=== PATIENT | male | born 1950 | race Caucasian/White ===

== ENCOUNTER 2019-05-23 18:39 | Inpatient (IN) | payer OTHER, MEDICAID ==
[~2019-05-23] VITALS: Ht 188 cm; Wt 59.9 kg
[2019-05-23 18:41] VITALS: BP 134/55
--- NOTE | 2019-05-23 19:04 | NUR ---
PT BIBA BLS FROM [facility] WITH FEVER (99.8F) AND BUMP ON BACK.EMS DOESN OT KNOW HOW DID THE BUMP COME FROM .NO N/V/D NOTED; SKIN IS PINK/WARM/DRY; LUNGS CLEAR BL; HR EVEN AND REGULAR; NO S/S OF CP, SOB, OR COUGH AT THIS TIME;FLACC 0. VSS; PT HAS G-TUBE AND DIAPER IN PLACE . PATIENT POSITIONED FOR COMFORT; HOB ELEVATED; BEDRAILS UP X2; BED DOWN. ER MD MADE AWARE OF PT STATUS.
--- NOTE | 2019-05-23 19:05 | NUR ---
ENDORSED TO PM SHIFT MEGHANN SARAVIA.
--- NOTE | 2019-05-23 20:32 | NUR ---
EKG PERFORMED AT BEDSIDE
[2019-05-23 20:36] LABS: BASOPHILS # (AUTO) 0.1 K/uL (0.00-0.22); BASOPHILS % (AUTO) 0.5 % (0.0-2.0); EOSINOPHILS # (AUTO) 0.2 K/uL (0-0.4); EOSINOPHILS % (AUTO) 1.3 % (0.0-4.0); HEMATOCRIT 36.2 % (36-52); HEMOGLOBIN 11.8 g/dL (12.0-18.0); LYMPHOCYTES # (AUTO) 1.8 K/uL (2.0-11.5); LYMPHOCYTES % (AUTO) 9.9 % (20.5-51.1); MEAN CORPUSCULAR HEMOGLOBIN 32 pg (27-31); MEAN CORPUSCULAR HGB CONC 33 g/dL (33-37); MEAN CORPUSCULAR VOLUME 98.2 fL (80-94); MONOCYTES % (AUTO) 10.9 % (1.7-9.3); NEUTROPHILS # (AUTO) 14.2 K/uL (1.8-7.7); NEUTROPHILS % (AUTO) 77.4 % (42.2-75.2); PLATELET COUNT (AUTO) 174 K/uL (140-450); RED BLOOD CELL COUNT(AUTO) 3.69 MIL/uL (4.20-6.10); RED CELL DISTRIBUTION WIDTH 12.6 % (11.6-13.7); WHITE BLOOD COUNT (AUTO) 18.4 K/uL (4.8-10.8)
[2019-05-23 20:52] LABS: ANION GAP 17.4 (8-16); CARBON DIOXIDE 20.7 mmol/L (21-32); CREATININE 0.7 mg/dL (0.7-1.3); POTASSIUM 4.1 mmol/L (3.5-5.1)
[2019-05-23] MEDS ORDERED: NACL 0.9% 2,000 ML IV ONE (20:55)
[2019-05-23 20:57] LABS: ALBUMIN 2.9 g/dL (3.4-5.0); TOTAL BILIRUBIN 0.2 mg/dL (0.0-1.0)
[2019-05-23] MEDS ORDERED: IBUPROFEN CHILDRENS 100 MG/5 ML UDC GT ONE (21:25)
[2019-05-23] MEDS ORDERED: ACETAMINOPHEN 650 MG SUPP RC ONE (21:25)
[2019-05-23] MEDS ORDERED: LEVOFLOXACIN 500 MG/D5W PREMIX 100 ML IV ONE (22:50)
[2019-05-23 22:53] LABS: APPEARANCE,URINE CLEAR (CLEAR); BILIRUBIN,URINE NEGATIVE (NEGATIVE); BLOOD, URINE NEGATIVE (NEGATIVE); COLOR,URINE YELLOW (YELLOW); LEUKOCYTE ESTERASE ,URINE NEGATIVE (NEGATIVE); NITRITE, URINE NEGATIVE (NEGATIVE); UGLUCOSE NEGATIVE (NEGATIVE)
[2019-05-24] MEDS ORDERED: DEXT 5% /NACL 0.9% 1,000 ML IV SCH (00:16)
[2019-05-24] MEDS ORDERED: HYDROcodone/APAP 7.5/325 MG 1 TAB PO PRN (00:20)
[2019-05-24] MEDS ORDERED: ARIP5TAB61 PO (00:20)
[2019-05-24] MEDS ORDERED: ACETAMINOPHEN 325 MG TAB PO PRN (00:20)
[2019-05-24] MEDS ORDERED: ONDANSETRON 4 MG/2 ML VIAL IVP PRN ×2 (00:20→09:30)
[2019-05-24] MEDS ORDERED: ESOM40EC PO (00:21)
[2019-05-24] MEDS ORDERED: FLUO10CA21 PO (00:22)
[2019-05-24] MEDS ORDERED: SYN.1 PO (00:23)
[2019-05-24] MEDS ORDERED: ATI.5 PO (00:25)
[2019-05-24] MEDS ORDERED: MULT-153 PO (00:26)
[2019-05-24] MEDS ORDERED: TOP100 PO (00:29)
[2019-05-24] MEDS ORDERED: BISA5ECT45 PO (00:30)
--- NOTE | 2019-05-24 00:30 | NUR ---
PT IN BED ALL FALLS PRECAUTIONS IN PLACE. PT WAS TURNED AND REPOSITIONED IN BED. V/S FOLLOWS: T 99.2 P 67 R 18 B/P 118/53 02 97% ON ROOM AIR. ALL FALLS PRECAUTIONS IN P[LACE AND IV SITE RUNNING FLUIDS ORDERED.
[2019-05-24] MEDS ORDERED: MAGN400S60 PO (00:32)
[2019-05-24 01:08] LABS: PROTHROMBIN TIME 9.6 secs (10.8-13.4)
[2019-05-24 01:22] LABS: PHOSPHORUS 2.3 mg/dL (2.5-4.9); THYROID STIMULATING HORMONE 0.53 uIU/mL (0.34-3.74)
[2019-05-24 01:40] VITALS: BP 111/46
--- NOTE | 2019-05-24 01:40 | NUR ---
PT ADMITTED TO [facility] RM 122B. TRANSFERRED VIA GURNEY, STABLE CONDITION. REPORT GIVEN TO LINDA ZAVALETA. TRANSFER OF CARE AT THIS TIME.
--- NOTE | 2019-05-24 01:40 | NUR ---
ADMITTED A 68M FROM ER. CAME BY BIRD DUE TO LOW GRADE FEVER, BACK ABSCESS. AWAKE, NO DISTRESS NOTED. MUMBLES. ON TELE MONITOR-SR. CONTRACTED ON UPPER AND LOWER EXTREMITIES. IV ACCESS ON THE RT FOOT G#22. WITH WOUND ABSCESS ON LOWER BACK. DRAINING LIGHT SEROSANGUINEOUS FLUIDS. CLEANSED WITH NS AND COVER WITH COMPOSITE DRESSING. REPOSITIONED PT FOR COMFORT. BED ON LOW POSITION,SIDE RAILS UP X2 AND PADDED FOR SEIZURE PRECAUTION. BED ALARM ON FOR SAFETY.CALL LIGHT PLACED WITHIN REACH AND FREQ ROUNDS NEEDED. WILL CALL MD FOR FURTHER ORDERS.
--- NOTE | 2019-05-24 02:40 | NUR ---
PAGED Mary NUÑEZ FOR FURTHER ORDERS. CALL BACK WITH ORDERS MADE AND CARRIED OUT.
--- NOTE | 2019-05-24 03:15 | NUR ---
ISOSOURCE 1.5 FOR GT FEEDING NOT AVAILABLE PER MEGHANN YOUNG GUARD LIEUTENANT. PAGED AGAIN DR. WONG AND MADE AWARE. OK TO CHANGE FEEDING TO JEVITY 1.2 SAME RATE.
[2019-05-24] MEDS: DEXT 5% / NACL 0.45% 1,000 ML IV SCH ×2 (04:12→15:00)
--- NOTE | 2019-05-24 04:28 | NUR ---
[facility] FEEDING UNABLE TO START DUE TO DIFFERENT CONNECTOR . CALLED [facility] IN [place], ABLE TO TALKED TO MEGHANN DOMINGO SHE SAID SHE THEY WILL BRING THE CONNCETOR THIS AM. ALSO SHE SAID PT ALREADY AHD PNA VACCINE AND FLU VACCINE.
[2019-05-24 04:50] VITALS: BP 127/66
--- NOTE | 2019-05-24 05:00 | NUR ---
SPECIMEN COLLECTED ON THE LOWER BACK ABSCESS FOR WOUND CULTURE. SEND TO LAB.
[2019-05-24 05:31] LABS: BASOPHILS % (AUTO) 0.2 % (0.0-2.0); EOSINOPHILS # (AUTO) 0.2 K/uL (0-0.4); EOSINOPHILS % (AUTO) 1.3 % (0.0-4.0); HEMATOCRIT 32.6 % (36-52); HEMOGLOBIN 10.9 g/dL (12.0-18.0); LYMPHOCYTES # (AUTO) 1.1 K/uL (2.0-11.5); LYMPHOCYTES % (AUTO) 6.5 % (20.5-51.1); MEAN CORPUSCULAR HEMOGLOBIN 33 pg (27-31); MEAN CORPUSCULAR HGB CONC 33 g/dL (33-37); MEAN CORPUSCULAR VOLUME 97.8 fL (80-94); MONOCYTES # (AUTO) 1.7 K/uL (0.8-1.0); MONOCYTES % (AUTO) 10.3 % (1.7-9.3); NEUTROPHILS # (AUTO) 13.8 K/uL (1.8-7.7); NEUTROPHILS % (AUTO) 81.7 % (42.2-75.2); PLATELET COUNT (AUTO) 147 K/uL (140-450); RED BLOOD CELL COUNT(AUTO) 3.33 MIL/uL (4.20-6.10); WHITE BLOOD COUNT (AUTO) 16.8 K/uL (4.8-10.8)
[2019-05-24 06:18] LABS: ALBUMIN 2.7 g/dL (3.4-5.0); ANION GAP 14.4 (8-16); CARBON DIOXIDE 22.9 mmol/L (21-32); CREATININE 0.6 mg/dL (0.7-1.3); POTASSIUM 4.3 mmol/L (3.5-5.1); TOTAL BILIRUBIN 0.3 mg/dL (0.0-1.0)
--- NOTE | 2019-05-24 07:30 | NUR ---
ENDORSED PT IN STABLE CONDITION TO AM NURSE.
--- NOTE | 2019-05-24 07:58 | NUR ---
SHIFT REPORT RECEIVED FROM MANAGER OF MAINTENANCE NURSE. PT IS IN BED IN STABLE CONDITION. G TUBE FEEDING NOT STARTED. WAITING FOR ADAPTER FROM [facility]. MANAGER OF MAINTENANCE NURSE CALLED [facility] TO BRING ADAPTER. CALL LIGHT IN REACH.
[2019-05-24 08:00] VITALS: BP 110/56
--- NOTE | 2019-05-24 08:40 | NUR ---
PATIENT HAS BEEN SCREENED AND CATEGORIZED HIGH NUTRITION RISK. PATIENT WILL BE SEEN WITHIN 1-2 DAYS OF ADMISSION. 05/24/19-05/25/[address]
[2019-05-24] MEDS ORDERED: DOCUSATE SODIUM 100 MG GELCAP PO SCH (09:00)
[2019-05-24] MEDS ORDERED: FAMOTIDINE 20 MG TAB PO SCH (09:00)
[2019-05-24] MEDS ORDERED: BISACODYL 10 MG SUPP RC PRN (09:20)
[2019-05-24] MEDS ORDERED: MAGNESIUM HYDROXIDE 2400 MG/30 ML UDC GT PRN (09:25)
[2019-05-24] MEDS ORDERED: LEVOFLOXACIN 500 MG/D5W PREMIX 100 ML IV SCH (09:30)
[2019-05-24] MEDS ORDERED: HYDROcodone/APAP 5/325 MG 1 TAB TAB GT PRN ×2 (09:30)
--- NOTE | 2019-05-24 09:30 | NUR ---
PT IS IN BED. NO SIGNS OF DISTRESS NOTED VITAL SIGNS WITHIN NORMAL LEVELS. CALL LIGHT IN REACH.
[2019-05-24] MEDS: ACETAMINOPHEN 650 MG/20.3 ML UDC GT PRN (10:37)
[2019-05-24 12:00] VITALS: BP 119/47
--- NOTE | 2019-05-24 13:00 | NUR ---
PER WOUND CARE NURSE. REPORTED TO CHARGE NURSE THAT DR WONG SHOULD BE CALLED FOR WOUND CONSULT. PER CHARGE NURSE DR HUERTA IS AWARE OF THE PATIENTS WOUND CONDITION.
[2019-05-24] MEDS ORDERED: CRUSHER, PILL MC ONE (13:11)
[2019-05-24] MEDS: LORazepam 0.5 MG TAB GT SCH ×2 (13:14→16:16)
--- NOTE | 2019-05-24 13:33 | NUR ---
WOUND CARE CONSULT NOTE: CLARIFICATION: PT ADMITTED WITH NO WOUND TO SACRAL COCCYX AREA.PT. ADMITTED WITH AN ABSCESS TO LOWER LUMBAR AREA, 2.5X4CM, CLOSE WOUND SEEPING OUT PURULENT DRAINAGE, MILD ODOR, PALLAVI-WOUND SKIN ERYTHEMA, WARM AND SWELLING, RECOMMEND FOR SURGEON CONSULT AND CHANGE DRESSING QD AND PRN IF SOILING. PRIMARY RN NOTIFIED. PT IS ON LOW MIHAELA SCALE AT RISK, CONTINUE TO FOLLOW PRESSURE ULCER PREVENTION INTERVENTIONS. -TURN AND REPOSITION PATIENT Q 2H -ASSESS AND MONITOR SKIN CONDITION DURING POSITION CHANGE -OFFLOAD BILATERAL HEELS BY PLACING PILLOWS UNDER CALVES AT ALL TIMES, UNLESS OTHERWISE CONTRAINDICATED -PRESSURE REDISTRIBUTION BY PLACING PILLOWS AND OFFLOADING SACRALCOCCYX -KEEP SKIN CLEAN AND DRY AT ALL TIMES. -CLEANSE LOWER BACK ABSCESS WITH NS, PAT DRY AND COVER WITH DRY DRESSING QD AND PRN IF SOILING
[2019-05-24] MEDS ORDERED: NON ADHERENT DRESSING TP PRN (13:45)
--- NOTE | 2019-05-24 15:00 | NUR ---
DC PLANNIN YRS OLD MALE PATIENT WAS ADMITTED FROM A [facility] WITH A DX OF PNEUMONIA. 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 ADMINISTERED IV ABX LEVAQUIN , CONTINUE HOME MEDS. ORDERED WOUND CONSULT AND ID CONSULT WITH DR CHARLES. DC PLAN TO GO BACK TO [facility] . CM TO FOLLOW Addendum: 05/25/19 at 0968 by Alicia Petersen CM DC PLANNING: CONTINUED WITH IV ABX LEVAQUIN AND VANCO. SEEN BY DR HUERTA RECOMMENDED I&D AND DEBRIDEMENT OF BACK ABSCESS , DISCUSSED WITH [address] WONG AND [address] CHARLES THEY ARE IN AGREEMENT TO PERFORM THE I&D. DC PLAN TO GO TO [facility] WHEN STABLE. IF MD RECOMMENDS HOME HEALTH FOR WOUND CARE WILL ARRANGE. CM TO FOLLOW Addendum: 05/27/19 at 1623 by Alicia Petersen CM DC PLANNING [facility] PT UNDER THE CARE OF DR JUDITH Pittman. CAN GO TO ROOM #15B TO GIVE REPORT [phone] AND ARRANGE TRANSPORT FOR WILL CALL WITH [facility] [phone] AFTER PICC PLACEMENT .
--- NOTE | 2019-05-24 15:00 | NUR ---
PT IS RESTING IN BED. INDUCE SPUTUM COLLECTION DONE. PT TOLERATED WELL. NO AGITATION NOTED. CALL LIGHT IN REACH.
[2019-05-24 16:00] VITALS: BP 117/58
--- NOTE | 2019-05-24 16:03 | NUR ---
05/24/19 INITIAL ASSESSMENT COMPLETED PLEASE REFER TO NUTRITION ASSESSMENT UNDER CARE ACTIVITY FOR ESTIMATED NUTRITIONAL NEEDS. 1. CONTINUE JEVITY 1.2 @ 75 ML/HR -THIS WILL PROVIDE 1800 ML OF VOLUME, 2160 KCAL AND 100 GM OF PROTEIN, WHICH MEETS 100% OF ESTIMATED NEEDS 2. RECOMMEND INCREASING FREE WATER FLUSH TO [address] TO FOLLOW-UP 2-3 DAYS, HIGH RISK ANGELINA GARZA RD
[2019-05-24] MEDS ORDERED: VANCOMYCIN PER PHARMACY MC PRN (17:20)
--- NOTE | 2019-05-24 18:00 | NUR ---
PT IS RESTING IN BED. NO AGITATION NOTED. CALL LIGHT IN REACH.
[2019-05-24] MEDS: VANCOMYCIN 1,000 MG in DEXTROSE 5% 250 ML IV SCH (18:16)
--- NOTE | 2019-05-24 19:41 | NUR ---
SHIFT REPORT ENDORSED TO OIL INSPECTOR NURSE. PT IS IN BED IN STABLE CONDITION. CALL LIGHT IN REACH.
--- NOTE | 2019-05-24 19:41 | NUR ---
REPORT RECEIVED FROM RN DAYSHIFT NURSE AT BEDSIDE FOR CONTINUITY OF CARE, PT IN STABLE CONDITION.
[2019-05-24 20:00] VITALS: BP 129/51
--- NOTE | 2019-05-24 20:00 | NUR ---
PT IN BED AOX1 SKIN INTACT EXCEPT FOR THE ACCES ON BACK. DRESSING INTACT WITH DRAINAGE NOTED. ALL FALLS PRECAUTIONS IN PLACE, HE WAS TURNED AND REPOSITIONED IN BED. V/S FOLLOWS; T 98.1 P 72 R 18 B/P 129/51 02 99% ON ROOM AIR. PT LUNG SOUNDS DIMINISHED, PT HAS GT INTACT AND FLUSHED PATENT WITH NO RESIDUAL. IV FLUIDS HUNG AND RUNNING ORDERED. VANCOMYCIN IV ABT COMPLETED NO ADVERSE EFFECTS NOTED, PT HAS IV SITE ON LEFT FOOT INTACT AND ASYMPTOMATIC.
--- NOTE | 2019-05-24 22:30 | NUR ---
IV ABT LEVAQUIN HUNG AND RUNNING AT 100MLS/HR. PT ALSO RECEIVED ORDERED TOPAMAX VIA GT SITE.
[2019-05-24] MEDS: TOPIRAMATE 100 MG TAB GT SCH (23:21)
[2019-05-24] MEDS: LEVOFLOXACIN 500 MG/D5W PREMIX 100 ML IV SCH (23:27)
[2019-05-25] VITALS: BP 103/68
[2019-05-25] MEDS: ACETAMINOPHEN 650 MG/20.3 ML UDC GT PRN (00:10)
--- NOTE | 2019-05-25 00:10 | NUR ---
PT TEMP WAS 101.2 AUXILIARY, HE WAS GIVEN TYLENOL VIA GT AND COOLING MEASURES, OTHER V/S FOLLOWS; P 81 R 18 B/P 103/68 02 97% ON ROOM AIR.
--- NOTE | 2019-05-25 01:30 | NUR ---
PT WAS TURNED AND REPOSITIONED , WOUND CARE PROVIDED.
[2019-05-25 04:00] VITALS: BP 118/53
--- NOTE | 2019-05-25 04:30 | NUR ---
PT TURNED CHANGED AND REPOSITIONED IN BED NO S/S OF PAIN OR DISTRESS NOTED RE TAKE OF V/S FOLLOWS; T 99. 2 P 67 R 18 B/P 118/53. ALL FALLS PRECAUTIONS IN PLACE.
[2019-05-25 05:38] LABS: BASOPHILS # (AUTO) 0.1 K/uL (0.00-0.22); BASOPHILS % (AUTO) 0.4 % (0.0-2.0); EOSINOPHILS # (AUTO) 0.6 K/uL (0-0.4); EOSINOPHILS % (AUTO) 2.9 % (0.0-4.0); LYMPHOCYTES % (AUTO) 9.1 % (20.5-51.1); MEAN CORPUSCULAR HEMOGLOBIN 33 pg (27-31); MEAN CORPUSCULAR HGB CONC 33 g/dL (33-37); MEAN CORPUSCULAR VOLUME 98.8 fL (80-94); MONOCYTES # (AUTO) 1.9 K/uL (0.8-1.0); MONOCYTES % (AUTO) 8.8 % (1.7-9.3); NEUTROPHILS # (AUTO) 17.4 K/uL (1.8-7.7); NEUTROPHILS % (AUTO) 78.8 % (42.2-75.2); PLATELET COUNT (AUTO) 167 K/uL (140-450); RED BLOOD CELL COUNT(AUTO) 3.34 MIL/uL (4.20-6.10); WHITE BLOOD COUNT (AUTO) 22.1 K/uL (4.8-10.8)
[2019-05-25 05:55] LABS: ANION GAP 12.9 (8-16); CARBON DIOXIDE 21.9 mmol/L (21-32); CREATININE 0.6 mg/dL (0.7-1.3); POTASSIUM 3.8 mmol/L (3.5-5.1)
[2019-05-25] MEDS: DEXT 5% / NACL 0.45% 1,000 ML IV SCH ×2 (06:00→18:40)
--- NOTE | 2019-05-25 06:00 | NUR ---
JOHNNY CARPENTER ORDERED IV SITE INTACT AND ASYMPTOMATIC. PT IN BED NO S/S OF PAIN OR DISTRESS NOTED.
[2019-05-25] MEDS: VANCOMYCIN 1,000 MG in DEXTROSE 5% 250 ML IV SCH ×2 (06:02→17:38)
--- NOTE | 2019-05-25 07:25 | NUR ---
PATIENT IS RESTING IN BED, DEVELOPMENTALLY DELAYED, AAOX1. SCHEDULED FOR I&D WITH DR. HUERTA TODAY AROUND 1130. BED IN LOW POSITION, CALL LIGHT ON AND WITHIN REACH. WILL CONTINUE TO MONITOR.
[2019-05-25 08:00] VITALS: BP 127/69
[2019-05-25] MEDS: DOCUSATE 100 MG/10 ML UDC GT SCH (09:10)
[2019-05-25] MEDS: LORazepam 0.5 MG TAB GT SCH ×3 (09:11→17:38)
[2019-05-25] MEDS: VITAMIN D 400 IU TAB GT SCH (09:11)
[2019-05-25] MEDS: LEVOTHYROXINE 0.1 MG TAB GT SCH (09:11)
[2019-05-25] MEDS: TOPIRAMATE 100 MG TAB GT SCH ×2 (09:11→21:36)
[2019-05-25] MEDS: FOLIC ACID 1 MG TAB GT SCH (09:12)
[2019-05-25] MEDS: ARIPiprazole 10 MG TAB GT SCH (09:12)
[2019-05-25] MEDS: FLUoxetine 10 MG CAP GT SCH (09:12)
[2019-05-25] MEDS: PANTOPRAZOLE 40 MG INJ VIAL IVP SCH (09:14)
--- NOTE | 2019-05-25 10:30 | NUR ---
PATIENT IS RESTING IN BED, MEDICATIONS TOLERATED WELL THROUGH GTUBE. PATIENT IS RESTING IN BED, WILL CONTINUE TO MONITOR.
[2019-05-25] MEDS ORDERED: BUPIVACAINE-MPF/EPI 0.25% 30 ML VIAL INJ ONE (11:08)
[2019-05-25] MEDS ORDERED: LIDOCAINE 1% 500 MG/50 ML VIAL ONE (11:08)
--- NOTE | 2019-05-25 11:30 | NUR ---
PATIENT WAS TAKEN TO OR FOR I&D. VITAL SIGNS STABLE. REPORT GIVEN TO OR NURSES.
[2019-05-25 12:00] VITALS: BP 103/64
[2019-05-25] MEDS ORDERED: PROPOFOL 200 MG/20 ML VIAL IV ONE (12:35)
--- NOTE | 2019-05-25 12:49 | NUR ---
PATIENT REMAINS IN OR.
[2019-05-25] MEDS: NON ADHERENT DRESSING TP SCH (14:16)
--- NOTE | 2019-05-25 15:00 | NUR ---
PATIENT IS RESTING IN BED, GTUBE FEEDING CONTINUED AT 75 ML/HR. MEDICATIONS TOLERATED WELL. WILL CONTINUE TO MONITOR.
[2019-05-25 16:00] VITALS: BP 108/64
--- NOTE | 2019-05-25 17:30 | NUR ---
PATIENT IS RESTING IN BED, TOLERATING FEEDING MEDICATION WELL. WILL CONTINUE TO MONITOR.
--- NOTE | 2019-05-25 19:10 | NUR ---
REPORT GIVEN TO SHOE TREER NURSE FOR CONTINUATION OF CARE.
--- NOTE | 2019-05-25 19:30 | NUR ---
RECEIVED REPORT FORM CAMRON RN DAYSHIFT NURSE AT BEDSIDE FOR CONTINUITY OF CARE, PT IN STABLE CONDITION, IN BED NO S/S OF PAIN OR DISTRESS NOTED. IV SITE ON LEFT FOOT 22G INTACT AND ASYMPTOMATIC AND RUNNING NORMAL SALINE AT 75MLS/HR. PT IN BED AOX1 GT SITE INTACT WITH NO RESIDUAL, PT RUNNING JEVITY 1.2 ORDERED, ALL FALLS PRECAUTIONS IN PLACE PT FLACC-O.
[2019-05-25 20:00] VITALS: BP 144/74
--- NOTE | 2019-05-25 21:30 | NUR ---
PT IN BED GIVEN SCHEDULED MEDS VIA GT , NO RESIDUAL NOTED LEVAQUIN HUNG AND RUNNING AT 100MLS/HR ORDERED. ALL FALL PRECAUTIONS IN PLACE.
[2019-05-25] MEDS: LEVOFLOXACIN 500 MG/D5W PREMIX 100 ML IV SCH (21:42)
--- NOTE | 2019-05-25 22:00 | NUR ---
PT WAS TURNED, CLEAN AND REPOSITIONED. DRESSING ON SACRAL AREA INTACT BUT WITH MODERATE DRAINAGE OF SEROSANGUINEOUS DRAINAGE. DRESSING REINFORCED. ALL FALLS PRECAUTIONS IN PLACE , GT FEEDING RUINING ORDERED AND IV SITE INTACT AND ASYMPTOMATIC AND RUNNING ORDERED. ALL FALLS PRECAUTIONS IN PLACE.
[2019-05-26] VITALS: BP 108/52
[2019-05-26] MEDS: DEXT 5% / NACL 0.45% 1,000 ML IV SCH ×2 (00:20→05:36)
--- NOTE | 2019-05-26 00:45 | NUR ---
PT IN BED, HE WAS REPOSITIONED IN BED, NO S/S OF PAIN OR DISTRESS NOTED. V/S FOLLOWS: T 98.7 P 62 R 18 B/P 108/52 02 97% ON ROOM AIR JEVITY 1.2 RUNNING AT 75MLS/HR WITH H2O FLUSH AT 100 Q 4 HRS. V/S FOLLOWS: T 98.7 P 62 R 18 B/P 108/52 02 97% ON ROOM AIR. ALL FALLS PRECAUTIONS IN PLACE.
[2019-05-26 04:00] VITALS: BP 112/80
[2019-05-26] MEDS: VANCOMYCIN 1,000 MG in DEXTROSE 5% 250 ML IV SCH ×2 (05:27→18:07)
--- NOTE | 2019-05-26 07:19 | NUR ---
RECEIVED PATIENT FROM SLIP COVER ESTIMATOR NURSE. PATIENT IS AWAKE, LAYING IN BED. RESPIRATIONS EVEN AND UNLABORED, ROOM AIR. VISIBLE CHEST RISE NOTED. S/P I&D RIGHT LOWER BACK. DRESSING IN PLACE. G-TUBE IN PLACE, JEVITY 1.2 RUNNING 75 ML/HR, H2O FLUSH AT 100 Q4H. GASTRIC RESIDUAL 3ML. IV ON THE LEFT FOOT 22G RUNNING D51/2NS AT 75 ML/HR. PATIENT IS BEDBOUND. SEIZURE PRECAUTION IN PLACE. SIDE RAILS PADDING IN PLACE. BED IN LOW POSITION. CALL LIGHT IS WITHIN REACH. WILL CONTINUE TO MONITOR
[2019-05-26 08:00] VITALS: BP 104/54
--- NOTE | 2019-05-26 08:00 | NUR ---
CHANGE IV SITE TO LEFT MCNAIR 20G. IV PATENT AND INTACT.
[2019-05-26] MEDS: VITAMIN D 400 IU TAB GT SCH (09:02)
[2019-05-26] MEDS: FOLIC ACID 1 MG TAB GT SCH (09:03)
[2019-05-26] MEDS: FLUoxetine 10 MG CAP GT SCH (09:03)
[2019-05-26] MEDS: TOPIRAMATE 100 MG TAB GT SCH ×2 (09:03→20:22)
[2019-05-26] MEDS: LORazepam 0.5 MG TAB GT SCH ×3 (09:03→17:11)
[2019-05-26] MEDS: LEVOTHYROXINE 0.1 MG TAB GT SCH (09:03)
--- NOTE | 2019-05-26 09:03 | NUR ---
GIVEN MORNING MEDICATIONS VIA G-TUBE. 3ML GASTRIC RESIDUAL. PATIENT TOLERATING FEEDING WELL. EXPLAINED TO PATIENT MEDICATIONS. PATIENT TOLERATED MEDICATION WELL. WILL CONTINUE TO MONITOR
[2019-05-26] MEDS: PANTOPRAZOLE 40 MG INJ VIAL IVP SCH (09:04)
[2019-05-26] MEDS: DOCUSATE 100 MG/10 ML UDC GT SCH (09:04)
[2019-05-26] MEDS: ARIPiprazole 10 MG TAB GT SCH (09:04)
--- NOTE | 2019-05-26 09:17 | NUR ---
MADE ROUNDS. PATIENT IS SLEEPING AT THIS TIME. NO SIGNS OF DISTRESS NOTED. CALL LIGHT IS WITHIN REACH. BED IN LOW POSITION. WILL CONTINUE TO MONITOR. SEIZURE AND FALL PRECAUTION IN PLACE
[2019-05-26 10:29] LABS: HEMATOCRIT 31.8 % (36-52); HEMOGLOBIN 10.6 g/dL (12.0-18.0); MEAN CORPUSCULAR HEMOGLOBIN 32 pg (27-31); MEAN CORPUSCULAR HGB CONC 34 g/dL (33-37); MEAN CORPUSCULAR VOLUME 96.6 fL (80-94); PLATELET COUNT (AUTO) 160 K/uL (140-450); RED BLOOD CELL COUNT(AUTO) 3.29 MIL/uL (4.20-6.10); RED CELL DISTRIBUTION WIDTH 12.6 % (11.6-13.7)
[2019-05-26 10:47] LABS: ANION GAP 15.3 (8-16); CARBON DIOXIDE 21.4 mmol/L (21-32); CREATININE 0.6 mg/dL (0.7-1.3); POTASSIUM 3.7 mmol/L (3.5-5.1)
[2019-05-26 11:22] LABS: BASOPHILS % (MANUAL) 0 % (0-2); EOSINOPHILS % (MANUAL) 5 % (0-4); LYMPHOCYTES % (MANUAL) 12 % (20-46); MONOCYTES % (MANUAL) 8 % (5-12)
--- NOTE | 2019-05-26 11:39 | NUR ---
PATIENT IS RESTING AT THIS TIME. NO SIGNS OF DISTRESS NOTED. BED IN LOW POSITION. CALL LIGHT IS WITHIN REACH.
[2019-05-26] MEDS: NON ADHERENT DRESSING TP SCH (13:10)
--- NOTE | 2019-05-26 13:18 | NUR ---
GIVEN ATIVAN VIA G-TUBE. GASTRIC RESIDUAL 0. PATIENT TOLERATED WELL. WILL CONTINUE TO MONITOR. BED IN LOW POSITION. CALL LIGHT IS WITHIN REACH
[2019-05-26] MEDS ORDERED: MORPHINE SULFATE 4 MG/ML SYR IVP SCH (13:30)
--- NOTE | 2019-05-26 17:20 | NUR ---
RECEIVED REPORT FROM MEGHANN FIELDS FOR CONTINUITY OF CARE FOR THIS SHIFT. PATIENT IS STABLE. WILL CONTINUE TO MONITOR.
--- NOTE | 2019-05-26 19:00 | NUR ---
PATIENT IN STABLE CONDITION. WILL ENDORSE TO NIGHT NURSE FOR CONTINUITY OF CARE.
--- NOTE | 2019-05-26 19:10 | NUR ---
RECEIVED PATIENT FROM DAY SHIFT NURSE. PT LAYING IN BED. RESPIRATIONS EVEN AND UNLABORED, ROOM AIR. VISIBLE CHEST RISE NOTED. S/P I&D RIGHT LOWER BACK. DRESSING IN PLACE. G-TUBE IN PLACE, JEVITY 1.2 RUNNING 75 ML/HR, H2O FLUSH AT 100 Q4H. GASTRIC RESIDUAL 5ML. IV ON THE LEFT FOOT 22G RUNNING D51/2NS AT 75 ML/HR. PATIENT IS BEDBOUND. BED IN LOW POSITION. CALL LIGHT IS WITHIN REACH. WILL CONTINUE TO MONITOR
[2019-05-26] MEDS: LEVOFLOXACIN 500 MG/D5W PREMIX 100 ML IV SCH (20:22)
--- NOTE | 2019-05-26 20:22 | NUR ---
GIVEN TOPAMAX AND LEVOFLOXACIN MD ORDERED, PT TOLERATED WELL.
[2019-05-27] VITALS: BP 98/44
--- NOTE | 2019-05-27 | NUR ---
VS CHECKED, WITHIN PT'S BASELINE, WILL CONTINUE TO MONITOR.
--- NOTE | 2019-05-27 02:22 | NUR ---
PT LYING ON BED. NO ACUTE DISTRESS NOTED.
[2019-05-27] MEDS: VANCOMYCIN 1,000 MG in DEXTROSE 5% 250 ML IV SCH ×2 (05:11→17:51)
--- NOTE | 2019-05-27 05:11 | NUR ---
GIVEN VANCOMYCIN MD ORDERED. PT TOLERATED WELL.
--- NOTE | 2019-05-27 06:37 | NUR ---
PT IN STABLE CONDITION. WILL ENDORSE PT TO DAY SHIFT NURSE FOR CONTINUOUS CARE.
--- NOTE | 2019-05-27 07:05 | NUR ---
RECEIVED REPORT FROM NIGHT NURSE, PT IS STABLE, SAFETY MEASURES IN PLACE,
[2019-05-27 07:36] LABS: BASOPHILS % (AUTO) 0.5 % (0.0-2.0); EOSINOPHILS # (AUTO) 0.8 K/uL (0-0.4); EOSINOPHILS % (AUTO) 9.3 % (0.0-4.0); HEMATOCRIT 31.9 % (36-52); HEMOGLOBIN 10.7 g/dL (12.0-18.0); LYMPHOCYTES % (AUTO) 10.8 % (20.5-51.1); MEAN CORPUSCULAR HEMOGLOBIN 33 pg (27-31); MEAN CORPUSCULAR HGB CONC 33 g/dL (33-37); MEAN CORPUSCULAR VOLUME 97.5 fL (80-94); MONOCYTES # (AUTO) 0.9 K/uL (0.8-1.0); MONOCYTES % (AUTO) 10.2 % (1.7-9.3); NEUTROPHILS # (AUTO) 6.1 K/uL (1.8-7.7); NEUTROPHILS % (AUTO) 69.2 % (42.2-75.2); PLATELET COUNT (AUTO) 181 K/uL (140-450); RED BLOOD CELL COUNT(AUTO) 3.27 MIL/uL (4.20-6.10); WHITE BLOOD COUNT (AUTO) 8.9 K/uL (4.8-10.8)
[2019-05-27 07:53] LABS: ALBUMIN 2.5 g/dL (3.4-5.0); ANION GAP 14.3 (8-16); CREATININE 0.6 mg/dL (0.7-1.3); POTASSIUM 4.3 mmol/L (3.5-5.1); TOTAL BILIRUBIN 0.3 mg/dL (0.0-1.0)
[2019-05-27 07:56] LABS: ANION GAP 11.5 (8-16); CARBON DIOXIDE 25.5 mmol/L (21-32); CREATININE 0.6 mg/dL (0.7-1.3)
[2019-05-27 08:00] VITALS: BP 94/47
[2019-05-27] MEDS: DOCUSATE 100 MG/10 ML UDC GT SCH (10:11)
[2019-05-27] MEDS: FLUoxetine 10 MG CAP GT SCH (10:11)
[2019-05-27] MEDS: ARIPiprazole 10 MG TAB GT SCH (10:12)
[2019-05-27] MEDS: LEVOTHYROXINE 0.1 MG TAB GT SCH (10:12)
[2019-05-27] MEDS: FOLIC ACID 1 MG TAB GT SCH (10:13)
[2019-05-27] MEDS: VITAMIN D 400 IU TAB GT SCH (10:13)
[2019-05-27] MEDS: LORazepam 0.5 MG TAB GT SCH ×3 (10:14→17:51)
[2019-05-27] MEDS: PANTOPRAZOLE 40 MG INJ VIAL IVP SCH (10:15)
--- NOTE | 2019-05-27 10:30 | NUR ---
GAVE ORDERED MEDICATION, PT TOLERATED WELL, PT IS STABLE IN BED
[2019-05-27] MEDS: TOPIRAMATE 100 MG TAB GT SCH ×2 (10:31→20:55)
[2019-05-27] MEDS: DEXT 5% / NACL 0.45% 1,000 ML IV SCH (10:40)
--- NOTE | 2019-05-27 11:00 | NUR ---
WOUND CARE RE-EVALUATION NOTES: REASON FOR EVALUATION: LOWER LUMBAR AREA ABSCESS COMPLETE SKIN ASSESSMENT DONE ON THIS 62 YEAR OLD MALE WITH S/P I&D ON LOWER BACK ABSCESS ON 05/25/19. 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 ALL ABOVE INFORMATION WAS OBTAINED FROM THE ADMISSION H&P. PATIENT IS AWAKE, VERBAL WITH INCOMPREHENSIBLE SPEECH, EYES OPEN AND ABLE TO TRACK MOVEMENT. SKIN COLOR APPROPRIATE TO ETHNICITY, WARM TO TOUCH. PEDAL PULSES PRESENT. G-TUBE IN PLACE. REQUIRES ASSISTANCE IN TURNING, BILATERAL UPPER AND LOWER EXTREMITY CONTRACTURES NOTED. PLAN OF CARE AND PRESSURE PREVENTATIVE MEASURES DISCUSSED WITH PRIMARY NURSE. PT IS ON LOW MIHAELA SCALE AT RISK, CONTINUE TO FOLLOW PRESSURE ULCER PREVENTION INTERVENTIONS. INTEGUMENTARY: - LOWER LUMBAR ABSCESS SURGICAL WOUND MEASUREMENTS IS 4.5 X 3 X 3 CM WITH UNDERMINING 2 CM FROM 1 TO 5 O'CLOCK AND 2 CM UNDERMINING FROM 7 TO 11 O'CLOCK. WOUND HAS SMALL SANGUINOUS DRAINAGE, NO ODOR. WOUND BED IS CLEAN WITH 100% GRANULATION. PALLAVI-WOUND SKIN INTACT. - G-TUBE STOMA SITE IS CLEAN AND SURROUNDING SKIN INTACT. RECOMMENDATIONS: - CLEANSE LUMBAR SURGICAL WOUND WITH NS, PAT DRY, PACK WITH MOIST TO DRY DRESSING, AND COVER WITH DRY DRESSING DAILY AND PRN IF SOILED. - CONTINUE TO TURN AND REPOSITION PATIENT Q 2H - CONTINUE TO ASSESS AND MONITOR SKIN CONDITION DURING POSITION CHANGE - CONTINUE TO OFFLOAD BILATERAL HEELS BY PLACING PILLOWS UNDER CALVES AT ALL TIMES, UNLESS OTHERWISE CONTRAINDICATED - CONTINUE PRESSURE REDISTRIBUTION BY PLACING PILLOWS AND OFFLOADING SACRALCOCCYX - KEEP SKIN CLEAN AND DRY AT ALL TIMES.
--- NOTE | 2019-05-27 12:25 | NUR ---
Film Sound Engineer Note: Basic Screen: Yes High Risk DC Screen Yes Name: LYDIA Esquivel Relationship: [facility] Pre-Admission Living Arrangements: Board and Care Prior ADL Needs Assistance Current Home Health Name/Tel: N/A Current DME/02 Name/Tel: [employer] Current Hospice Name/Tel: N/A Current Dialysis Name/Tel: N/A Healthcare Decision Maker: Community/foster care case manager Other: TUSHAR NIXON - [facility] - [phone] Advance Directive No Physician Orders for Life Sustaining Treatment Form No Patient/Family Have Educational Needs No Discipline: Case Mgt/Social Svcs Tentative Discharge Plan/Destination: No Needs Identified Will require assistance post discharge: No Referred to Roofing Apprentice: No Tentative Discharge Plan Summary: Patient is a 68-year-old male admitted for pneumonia. Patient has PMHX of seizure disorder, bailey esophagus, cerebral palsy, cardiac arrythmia, mental retardation, hypothyroidism, dyspepsia, and dysphagia. Patient was admitted from [facility]. SW contacted Lydia Jefferson from [facility] [phone] to verify demographics. Lydia stated that patient lives at [address] [place] [address]. Lydia reproted that patient has no conservator or family involved in his care. Patient has been a resident of [facility] for +6 years. Lydia stated that patient's IRC worker is Tushar Nixon [phone] and patient's nurse is Livia Allison [phone] if there is additional medical questions. Patient is expected back at facility after discharge. No further needs identified. Signature: PATTY Young Date: May 27, 2019 Time: 12:18 Addendum: 05/27/19 at 1226 by Best Chatman SS KATH contacted Tushar Nixon [phone] regarding consent for piccline. Tushar was not available. KATH left voicemail. KATH will follow up as needed.
[2019-05-27] MEDS: NON ADHERENT DRESSING TP SCH (13:00)
--- NOTE | 2019-05-27 13:00 | NUR ---
PT IS STABLE IN BED, PT SEEMS TO BE PLAYING WITH HIS PILLOW,
--- NOTE | 2019-05-27 14:47 | NUR ---
05/27/19 RD FOLLOW UP COMPLETED PLEASE REFER TO NUTRITION ASSESSMENT UNDER CARE ACTIVITY FOR ESTIMATED NUTRITIONAL NEEDS. 1. CONTINUE JEVITY 1.2 @ 75 ML/HR -THIS WILL PROVIDE 1800 ML OF VOLUME, 2160 KCAL AND 100 GM OF PROTEIN, WHICH MEETS 100% OF ESTIMATED NEEDS 2. RECOMMEND INCREASING FREE WATER FLUSH TO [address] TO FOLLOW-UP 2-3 DAYS, HIGH RISK ANGELINA GARZA RD
[2019-05-27 16:00] VITALS: BP 116/73
--- NOTE | 2019-05-27 17:00 | NUR ---
GAVE PT ORDERED MEDICATION, PT TOLERATED IT WELL. PT IS STABLE IN BED,
--- NOTE | 2019-05-27 19:00 | NUR ---
GAVE REPORT TO NIGHT NURSE, PT IS STABLE,
--- NOTE | 2019-05-27 19:30 | NUR ---
REPORT RECEIVED AT BEDSIDE FOR CONTINUITY OF CARE, PT IN STABLE CONDITION.
--- NOTE | 2019-05-27 20:00 | NUR ---
PT IN BED AOX1 NO S/S OF PAIN OR DISTRESS HAS 20G IV SITE ON RIGHT MCNAIR. INTACT AND RUNNING D51/2 NS ORDERED. PT ALSO HAS GTUBE WITH JEVITY 1.2 RUNNING AT 75MLS/HR WITH H2O FLUSH AT 100MLS/HR. ALL FALLS AND CONTACT PRECAUTIONS IN PLACE AND V/S FOLLOWS; T 97.6 P 68 R 18 B/P 140/50 02 100% ON ROOM AIR.
--- NOTE | 2019-05-27 20:40 | NUR ---
PT GIVEN ORDERED TOPAMAX VIA GT AND LEVAQUIN IVABT. RECEIVED CALL FROM KT ZAVALETA PICC NURSE TO BE HERE AT 2100. CONSENT SIGNED BY 2 DOCTORS.
[2019-05-27] MEDS: LEVOFLOXACIN 500 MG/D5W PREMIX 100 ML IV SCH (20:56)
--- NOTE | 2019-05-27 21:15 | NUR ---
PT BECAME AGITATED DURING PROCEDURE , CALLED ADMITTING MD JUDITH Pittman AND RECEIVED TORB OF 1MG ATIVAN IVP, WHICH WAS GIVEN DURING PROCEDURE TO CALM PT WHO WAS RESTLESS IN BED.
[2019-05-27] MEDS ORDERED: LORazepam 2 MG/ML VIAL IM/IVP STA (21:16)
--- NOTE | 2019-05-27 22:00 | NUR ---
PT RECEIVED LEFT UPPER MIDLINE. PT CALM IN BED .
[2019-05-28] MEDS ORDERED: FOLI1TAB90 GT (00:27)
[2019-05-28] MEDS ORDERED: Vancomycin Per Pharmacy MC (00:27)
[2019-05-28] MEDS ORDERED: VANC1PLA7 IV (00:27)
[2019-05-28] MEDS ORDERED: DEXT100S62 IV (00:27)
[2019-05-28] MEDS ORDERED: COL100L GT (00:27)
[2019-05-28] MEDS ORDERED: VITD400 GT (00:27)
[2019-05-28 00:30] VITALS: BP 117/74
--- NOTE | 2019-05-28 00:30 | NUR ---
[facility] HERE FOR QM CONSULTANT, FOR PT TO GO [facility]. REPORT GIVEN TO WILMA ZAVALETA AND COPY OF DISCHARGE PAPERWORK FAXED OVER. PT LAST V/S FOLLOWS: T 98.6 P 63 R 18 B/P 133/48 02 96% ON ROOM AIR. PT LEFT WITH BELONGINGS IN HAND
[2019-05-28 04:16] VITALS: BP 117/74
== END 2019-05-28 00:30 | DRG 853 ==
LOC: MED 18:39 → MTU 05-24 01:17
PROVIDERS: ADMIT Preventive Medicine Preventive Medicine/Occupational Environmental Medicine; ATTEND Preventive Medicine Preventive Medicine/Occupational Environmental Medicine
PROC: 0JB70ZZ Excision of Back Subcutaneous Tissue and Fascia, Open Approach (ICD-10-PCS; principal; 2019-05-25 11:15)
PROC: 02HV33Z Insertion of Infusion Device into Superior Vena Cava, Percutaneous Approach (ICD-10-PCS; 2019-05-27)
PROC: B548ZZA Ultrasonography of Superior Vena Cava, Guidance (ICD-10-PCS; 2019-05-27)
DX: A41.9 Sepsis, unspecified organism (principal); M72.6 Necrotizing fasciitis; J18.9 Pneumonia, unspecified organism; J90 Pleural effusion, not elsewhere classified; L02.212 Cutaneous abscess of back [any part, except buttock and flank]; D64.9 Anemia, unspecified; E03.9 Hypothyroidism, unspecified; E83.39 Other disorders of phosphorus metabolism; E83.51 Hypocalcemia; E88.09 Other disorders of plasma-protein metabolism, not elsewhere classified; G40.909 Epilepsy, unspecified, not intractable, without status epilepticus; F79 Unspecified intellectual disabilities; R73.9 Hyperglycemia, unspecified; K21.9 Gastro-esophageal reflux disease without esophagitis; G80.9 Cerebral palsy, unspecified; K22.70 Barrett's esophagus without dysplasia; Z88.0 Allergy status to penicillin; Z93.1 Gastrostomy status; Z88.1 Allergy status to other antibiotic agents; Z88.8 Allergy status to other drugs, medicaments and biological substances
CPT/HCPCS: 36415; 71045; 80048; 80053; 80202; 81003; 83036; 83605; 83690; 83735; 83880; 84100; 84443; 84484; 85025; 85610; 85651; 85730; 86140; 87040; 87070; 87075; 87081; 87086; 87186; 87205; 87804; 88304; 93005; 96361; 96365; 99285; C1751; C9113; J1956; J2001; J2060; J2270; J2704; J3370; J3490; J7060; J7120; Q0092

== ENCOUNTER 2021-03-29 17:26 | Inpatient (IN) | payer OTHER, MEDICAID, SELFPAY ==
[~2021-03-29] VITALS: Ht 188 cm; Wt 73.5 kg
[~2021-03-29 17:26] MED LIST: ARIP5TAB61 PO; ATI.5 PO; BISA-227 PO; COL100L GT; DEXT100S62 IV; ESOM40EC PO; FLUO10CA21 PO; FOLI1TAB90 GT; MAGN400S60 PO; MULT-2112 PO; SYN.1 PO; TOP100 PO; VANC1PLA7 IV; VITD400 GT; Vancomycin Per Pharmacy MC
[2021-03-29 17:42] VITALS: BP 90/63
--- NOTE | 2021-03-29 17:42 | NUR ---
70 Y/O MALE BIBA FROM [facility] C/O DIFFICULTY BREATHING. PER EMS PT WAS ON 88% ON ROOM AIR AT FACILITY. EMS PLACED PT ON NON BREATHER, O2 SATURATION AT 98%. PT ON ROOM AIR IS 93%. LUNG SOUNDS CRACKLES NOTED. MEDHX: SEIZURE, PNUEMONIA, GTUBE ALLERIGES: PENCILLIN, CLINDAMYCIN, ERTHYROMYCIN, GARAMYCIN
--- NOTE | 2021-03-29 18:00 | NUR ---
LAB AT BEDSIDE
--- NOTE | 2021-03-29 18:02 | NUR ---
JOSE AND EARL SWAB COLLECTED AND HANDED TO LIGIA MANUEL
[2021-03-29 18:15] LABS: BASOPHILS % (AUTO) 0.3 % (0.0-2.0); EOSINOPHILS # (AUTO) 0.1 K/uL (0-0.4); HEMATOCRIT 30.4 % (36-52); HEMOGLOBIN 10.3 g/dL (12.0-18.0); LYMPHOCYTES # (AUTO) 0.9 K/uL (2.0-11.5); LYMPHOCYTES % (AUTO) 9.1 % (20.5-51.1); MEAN CORPUSCULAR HEMOGLOBIN 34 pg (27-31); MEAN CORPUSCULAR HGB CONC 34 g/dL (33-37); MEAN CORPUSCULAR VOLUME 100.9 fL (80-94); MONOCYTES # (AUTO) 1.2 K/uL (0.8-1.0); MONOCYTES % (AUTO) 12.1 % (1.7-9.3); NEUTROPHILS # (AUTO) 7.9 K/uL (1.8-7.7); NEUTROPHILS % (AUTO) 77.5 % (42.2-75.2); PLATELET COUNT (AUTO) 167 K/uL (140-450); RED BLOOD CELL COUNT(AUTO) 3.01 MIL/uL (4.20-6.10); RED CELL DISTRIBUTION WIDTH 15.1 % (11.6-13.7); WHITE BLOOD COUNT (AUTO) 10.2 K/uL (4.8-10.8)
[2021-03-29 18:30] LABS: ALBUMIN 2.5 g/dL (3.4-5.0); TOTAL BILIRUBIN 0.3 mg/dL (0.0-1.0)
--- NOTE | 2021-03-29 18:31 | NUR ---
XRAY AT BEDSIDE
[2021-03-29] MEDS ORDERED: LEVOFLOXACIN 750 MG/D5W PREMIX 150 ML IV ONE ×2 (18:40→23:02)
[2021-03-29] MEDS ORDERED: VANCOMYCIN 1,000 MG in DEXTROSE 5% 250 ML IV ONE (18:40)
[2021-03-29] MEDS ORDERED: CEFEPIME 1,000 MG in DEXTROSE 5% 50 ML IV ONE (18:40)
[2021-03-29] MEDS ORDERED: PRON INH (18:41)
[2021-03-29] MEDS ORDERED: BISA-218 RC (18:41)
[2021-03-29] MEDS ORDERED: OLAN15TA1 GT (18:41)
[2021-03-29] MEDS ORDERED: ASCO-786 GT (18:41)
[2021-03-29] MEDS ORDERED: DEXT15SY7 PO (18:41)
[2021-03-29] MEDS ORDERED: CARB15DR61 OT (18:41)
[2021-03-29] MEDS ORDERED: TYLCODL PO (18:41)
[2021-03-29] MEDS ORDERED: FERR75LI22 GT (18:41)
[2021-03-29] MEDS ORDERED: FLEMIN RC (18:41)
[2021-03-29] MEDS ORDERED: OMEP40EC23 GT (18:41)
[2021-03-29] MEDS ORDERED: METO5SOL19 GT (18:41)
[2021-03-29] MEDS ORDERED: IBUP-2213 GT (18:41)
[2021-03-29] MEDS ORDERED: NACL 0.9% 500 ML IV ONE (18:55)
[2021-03-29 18:57] LABS: APPEARANCE,URINE CLEAR (CLEAR); BILIRUBIN,URINE NEGATIVE (NEGATIVE); BLOOD, URINE 1+ (NEGATIVE); COLOR,URINE YELLOW (YELLOW); LEUKOCYTE ESTERASE ,URINE 1+ (NEGATIVE); NITRITE, URINE NEGATIVE (NEGATIVE); PH,URINE 6.5 (5.0-9.0); UGLUCOSE NEGATIVE (NEGATIVE)
[2021-03-29] MEDS ORDERED: CEFEPIME 1,000 MG VIAL ONE (18:58)
--- NOTE | 2021-03-29 19:18 | NUR ---
Pt report given to ELIAN ZAVALETA. Transfer of care at this time.
--- NOTE | 2021-03-29 19:18 | NUR ---
REPORT RECEIVED FROM MEGHANN NEWELL FOR CONTINUITY OF PT CARE AT THIS TIME.
[2021-03-29] MEDS ORDERED: NON-FORMULARY ITEM ([Vancomycin Per Pharmacy] 1 EA) MC PRN (19:40)
[2021-03-29] MEDS ORDERED: bisacodyL 10 MG SUPP RC PRN (19:40)
[2021-03-29] MEDS ORDERED: MINERAL OIL 135 ML ENEM RC PRN (19:40)
[2021-03-29] MEDS ORDERED: ACETAMIN/CODEINE 120/12MG-5ML 5 ML UDC GT PRN (19:40)
[2021-03-29] MEDS ORDERED: VANCOMYCIN 1,000 MG VIAL ONE (19:45)
--- NOTE | 2021-03-29 19:48 | NUR ---
PT LAYING IN BED SUPINE, W BED LOCKED IN LOWEST POSITION W X2 SIDERAILS UP FOR PT SAFETY. PT ON 10L NON-REBREATHER, CRACKLES AUSCULTATED BL LUNGS. VSS. NAD NOTED WILL CONTINUE TO MONITOR.
--- NOTE | 2021-03-29 19:48 | NUR ---
PT HAS NS BOLUS RUNNING W 200ML INFUSED TO L 22 G FOREARM. 300ML VTBI.
[2021-03-29] MEDS ORDERED: VANCOMYCIN PER PHARMACY MC PRN ×2 (20:15→20:35)
--- NOTE | 2021-03-29 20:19 | NUR ---
CALLED MEGHANN CUNNINGHAM TO GIVE REPORT. PER OCTAVIO ZAVALETA UNABLE TO TAKE REPORT AT THIS TIME TO CALL BACK IN 15MIN.
--- NOTE | 2021-03-29 20:38 | NUR ---
Pt report given to MEGHANN CUNNINGHAM. Transfer of care at this time.
[2021-03-29] MEDS ORDERED: VANCOMYCIN IV SCH (21:00)
[2021-03-29] MEDS ORDERED: SOD CHLORIDE IV SCH (21:00)
[2021-03-29] MEDS ORDERED: DEXTROMETHORPHAN HBR PO SCH (21:00)
--- NOTE | 2021-03-29 21:15 | NUR ---
NS COMPLETED 500 ML AT THIS TIME.
--- NOTE | 2021-03-29 21:20 | NUR ---
PATIENT WAS BROUGHT TO TELE AWAKE, ALERT NON VERBAL. NO SOB NOTED. RESPIRATION REGULAR UNLABORED. G-TUBE IN PLACE. O2 NC AT 3L TOLERATING WELL. SKIN IS INTACT, WARM AND DRY TO THE TOUCH. ALL SAFETY PRECAUTIONS ARE IN PLACE. CALL LIGHT WITHIN REACH. WILL CONTINUE TO MONITOR.
[2021-03-29] MEDS: ALBUTEROL 0.083% 2.5 MG/3 ML NEBU INH PRN (22:10)
--- NOTE | 2021-03-29 22:15 | NUR ---
2210 gave patient hhntx. patient has large amts of copious secretions. patient has a good cough. placed pt on 2lnc
[2021-03-29] MEDS: TOPIRAMATE 100 MG TAB GT SCH (23:04)
--- NOTE | 2021-03-29 23:04 | NUR ---
SCHEDULED MEDS GIVEN ORDERED.
--- NOTE | 2021-03-29 23:10 | NUR ---
Patient will be admitted to care of [facility]. Admited to TELEMETRY. Will go to room 121- B. Belongings list completed. Report to MEGHANN CUNNINGHAM.
[2021-03-30] VITALS: BP 112/61
[2021-03-30 04:00] VITALS: BP 100/55
[2021-03-30] MEDS: LEVOTHYROXINE 0.1 MG TAB GT SCH (06:29)
[2021-03-30] MEDS: LANSOPRAZOLE 30 MG CAPDR GT SCH (06:29)
--- NOTE | 2021-03-30 07:40 | NUR ---
RECEIVED REPORT FROM POWER EQUIPMENT TECHNOLOGY INSTRUCTOR NURSE FOR CONTINUITY OF CARE. PATIENT SLEEPING. BREATHING EVEN AND UNLABORED. NO ACUTE DISTRESS NOTED. CALL LIGHT WITHIN REACH. ALL SAFETY MEASURES IN PLACE. WILL CONTINUE TO MONITOR.
[2021-03-30 08:00] VITALS: BP 98/54
[2021-03-30] MEDS ORDERED: VANCOMYCIN 1GM/DEXT 5% PREMIX 200 ML IV SCH (08:00)
[2021-03-30] MEDS ORDERED: VANCOMYCIN PER PHARMACY MC PRN (08:05)
[2021-03-30] MEDS ORDERED: NON-FORMULARY ITEM (Omeprazole* (Prilosec*) 40 MG) GT SCH (09:00)
[2021-03-30] MEDS ORDERED: CARBAMIDE PEROXIDE 6.5% OT 15 ML BTL OT SCH (09:00)
[2021-03-30] MEDS ORDERED: bisacodyL 5 MG TABEC GT SCH (09:00)
[2021-03-30] MEDS ORDERED: DEXT 5% IV SCH (09:00)
[2021-03-30] MEDS ORDERED: LEVOFLOXACIN IV SCH (09:00)
[2021-03-30] MEDS ORDERED: PIGGYBACK IV SCH (09:00)
--- NOTE | 2021-03-30 09:33 | NUR ---
PATIENT HAS BEEN SCREENED AND CATEGORIZED HIGH NUTRITION RISK. PATIENT WILL BE SEEN WITHIN 1-2 DAYS OF ADMISSION. 03/30/21-03/31/21 RECEIVED FNS CONSULT AND REFERRAL FOR TUBE FEEDING [address]
[2021-03-30] MEDS: ARIPiprazole 10 MG TAB GT SCH (09:58)
--- NOTE | 2021-03-30 09:58 | NUR ---
PATIENT AWAKE. PATIENT REMAINS ON ROOM AIR. PATIENT O2 IS 92%. NO ACUTE DISTRESS NOTED. SCHEDULED MEDICATIONS GIVEN. CALL LIGHT WITHIN REACH. ALL SAFETY AND SEIZURE MEDICATION GIVEN.
[2021-03-30] MEDS: LORazepam 0.5 MG TAB GT SCH (09:59)
[2021-03-30] MEDS: VITAMIN D 400 IU TAB GT SCH (09:59)
[2021-03-30] MEDS: DOCUSATE 100 MG/10 ML UDC GT SCH (10:00)
[2021-03-30] MEDS: MAGNESIUM HYDROXIDE 2400 MG/30 ML UDC GT SCH (10:01)
[2021-03-30] MEDS: FOLIC ACID 1 MG TAB GT SCH (10:01)
[2021-03-30] MEDS: FERROUS SULFATE 300 MG/5 ML UDC GT SCH (10:01)
[2021-03-30] MEDS: FLUoxetine 10 MG CAP GT SCH (10:02)
[2021-03-30] MEDS: TOPIRAMATE 100 MG TAB GT SCH ×2 (10:02→20:25)
[2021-03-30] MEDS: OLANZapine 5 MG TAB GT SCH (10:02)
[2021-03-30] MEDS: METOCLOPRAMIDE 10 MG/10 ML SYRP UDC GT SCH ×3 (10:09→16:14)
[2021-03-30] MEDS: ASCORBIC ACID 500 MG/5 ML ORASYR GT SCH (10:09)
--- NOTE | 2021-03-30 10:59 | NUR ---
RECEIVED TORB FROM DR. WONG TO START PATIENT ON TUBE FEEDING
--- NOTE | 2021-03-30 11:29 | NUR ---
PATIENT AWAKE. PATIENT REMAINS ON ROOM AIR. PATIENT O2 IS 93%. NO ACUTE DISTRESS NOTED. CALL LIGHT WITHIN REACH. ALL SAFETY AND SEIZURE MEDICATION GIVEN.
--- NOTE | 2021-03-30 11:38 | NUR ---
03/30/21 RD INITIAL ASSESSMENT COMPLETED PLEASE REFER TO NUTRITION ASSESSMENT UNDER CARE ACTIVITY FOR ESTIMATED NUTRITIONAL NEEDS. 1. RECOMMEND OSMOLITE 1.5, START WITH 20 ML/HR AND INCREASE BY 20 ML/HR Q4H; GOAL RATE IS 60 ML/HR - OSMOLITE 1.5 @ 60 ML/HR WITH FLUSH OF 265 Q6H WILL PROVIDE 2160 KCAL, 90 G PROTEIN AND 2160 ML WATER/DAY, MEETING ADEQUATE NUTRIENT NEEDS 3. RD TO FOLLOW-UP 2-3 DAYS, HIGH RISK WILLIAM GAN RD
[2021-03-30 12:00] VITALS: BP 112/57
[2021-03-30] MEDS: VANCOMYCIN 1,000 MG in DEXTROSE 5% 250 ML IV SCH ×2 (12:17→22:00)
--- NOTE | 2021-03-30 13:02 | NUR ---
PATIENT SLEEPING. PATIENT REMAINS ON ROOM AIR. PATIENT O2 IS 92%. NO ACUTE DISTRESS NOTED. SCHEDULED MEDICATIONS GIVEN. CALL LIGHT WITHIN REACH. ALL SAFETY AND SEIZURE MEDICATION GIVEN.
--- NOTE | 2021-03-30 14:13 | NUR ---
DC PLANNING: THE PATIENT ADMITTED THROUGH THE ED FOR SOB AND HYPOXIA. THE PATIENT COMES FROM [facility] AND HAS A H/O RECURRENT PNA, PEG, HTN, COPD AND DM. THE HOUSE DYE CAN OPERATOR IS REBEKAH GANDHI ([phone]) WHOM IZABELLA SPOKE WITH BY PHONE. THE PATIENT IS NON-VERBAL EXCEPT FOR YELLING WHEN HE'S UNHAPPY. HE IS TOTAL CARE AND BED/CHAIR BOUND. THERE IS NO FAMILY INVOLVED IN DECISION MAKING, THE PATIENT IS [facility] CONNECTED THROUGH [facility] AND HIS WORKER IS DEBBIE MONTES ([phone]). THE PATIENT HAS O2 AT THE FACILITY FOR PRN USE, THE PATIENT IS CURRENTLY ON IV ABX. SNF CHOICES IF HE REQUIRES PLACEMENT ARE [facility]. IZABELLA WILL FOLLOW FOR NEEDS. Addendum: 04/01/21 at 1042 by Laly Burrell CM DC PLANNING: DC ORDER RECEIVED FROM THE ATTENDING MD. IZABELLA SPOKE WITH THE HOUSE DYE CAN OPERATOR REBEKAH GANDHI, SHE WILL ARRANGE FOR GLASS BLOWING LATHE OPERATOR WITH [employer] REPORT TO BE GIVEN TO THE MINES INSPECTORMEGHANN DOMINGO AT [phone]. PATIENTS RN AWARE OF DC, IZABELLA WILL FOLLOW FOR NEEDS. Addendum: 04/01/21 at 1227 by Laly Burrell DC PLANNING: TC FROM PATIENTS NURSE LORA STATING THAT THE PATIENTS DC IS CANCELLED BECAUSE OF BC'S WITH GRAM POSITIVE RODS AND A NEW RASH. CM SPOKE WITH DELORES FROM [employer] TO ASK THAT SHE CANCEL TRANSPORT. CM ALSO ASKED FOR SNF CHOICES IN CASE THE PATIENT NEEDS INTERMEDIATE IV ABX, [facility] THE FACILITIES OF CHOICE. CM WILL FOLLOW FOR NEEDS.
--- NOTE | 2021-03-30 15:48 | NUR ---
PATIENT AWAKE. PATIENT REMAINS ON ROOM AIR. PATIENT O2 IS 93%. NO ACUTE DISTRESS NOTED. CALL LIGHT WITHIN REACH. ALL SAFETY AND SEIZURE MEDICATION GIVEN.
[2021-03-30 16:00] VITALS: BP 107/56
--- NOTE | 2021-03-30 17:50 | NUR ---
PATIENT AWAKE. PATIENT REMAINS ON ROOM AIR. PATIENT O2 IS 93%. NO ACUTE DISTRESS NOTED. PATIENT TOLERATING GTUBE FEEDING WELL. CALL LIGHT WITHIN REACH. ALL SAFETY AND SEIZURE MEDICATION GIVEN.
--- NOTE | 2021-03-30 19:39 | NUR ---
ENDORSED TO OPERATOR SUPPLY NURSE FOR CONTINUITY OF CARE. PATIENT SLEEPING. PATIENT REMAINS ON ROOM AIR. PATIENT O2 IS 91%. NO ACUTE DISTRESS NOTED. CALL LIGHT WITHIN REACH. ALL SAFETY AND SEIZURE MEDICATION GIVEN.
[2021-03-30 20:00] VITALS: BP 97/54
--- NOTE | 2021-03-30 20:00 | NUR ---
PATIENT WAS RECEIVED IN HIS BED ASLEEP WITH NORMAL BREATHING PATTERN OXYGEN SATURATION AT 89 ROOM AIR WITH HX OF COPD, EQUAL RISE AND FALL OF CHEST.
--- NOTE | 2021-03-30 21:00 | NUR ---
ALL DUE MEDS WERE GIVEN VIA G TUBE TOLERATED WELL BY THE PATIENT.
--- NOTE | 2021-03-30 22:00 | NUR ---
DUE IV MEDICATION WAS GIVEN. TOLERATED WELL BY THE PATIENT
--- NOTE | 2021-03-30 23:00 | NUR ---
PATIENT WAS CALMLY ASLEEP
[2021-03-31] VITALS: BP 99/50
--- NOTE | 2021-03-31 | NUR ---
PATIENT WAS CHANGED FEEDING TUBE DRESSING WAS CHANGED,
--- NOTE | 2021-03-31 02:00 | NUR ---
PATIENT WAS CALMLY ASLEEP
[2021-03-31 04:00] VITALS: BP 101/91
--- NOTE | 2021-03-31 04:00 | NUR ---
V/S WAS WNL, IV WAS OUT PATIENT WAS CHANGED, NEW PIV IN HIS RIGHT HAND DORSUM WAS OBTAINED WITH 20 GAUGE HINTON, TOLERATED WELL BY THE PATIENT
[2021-03-31 05:55] LABS: ANION GAP 13.3 (8-16); CARBON DIOXIDE 25.3 mmol/L (21-32); CREATININE 0.9 mg/dL (0.6-1.3); POTASSIUM 3.6 mmol/L (3.5-5.1)
[2021-03-31 06:00] LABS: BASOPHILS % (AUTO) 0.2 % (0.0-2.0); EOSINOPHILS # (AUTO) 0.5 K/uL (0-0.4); EOSINOPHILS % (AUTO) 8.2 % (0.0-4.0); HEMATOCRIT 32.2 % (36-52); HEMOGLOBIN 10.7 g/dL (12.0-18.0); LYMPHOCYTES # (AUTO) 1.3 K/uL (2.0-11.5); MEAN CORPUSCULAR HEMOGLOBIN 34 pg (27-31); MEAN CORPUSCULAR HGB CONC 33 g/dL (33-37); MEAN CORPUSCULAR VOLUME 101.4 fL (80-94); MONOCYTES % (AUTO) 14.4 % (1.7-9.3); NEUTROPHILS # (AUTO) 3.9 K/uL (1.8-7.7); NEUTROPHILS % (AUTO) 58.2 % (42.2-75.2); PLATELET COUNT (AUTO) 186 K/uL (140-450); RED BLOOD CELL COUNT(AUTO) 3.17 MIL/uL (4.20-6.10); WHITE BLOOD COUNT (AUTO) 6.7 K/uL (4.8-10.8)
--- NOTE | 2021-03-31 06:00 | NUR ---
PATIENT G TUBE WAS OBSERVED TO OUT OF THE STOMACH, PATIENT ACCIDENTALLY PULLED IT OUT, UNABLE TO PUT IT BACK IN. TO INFORM ATTENDING PHYSICIAN.
--- NOTE | 2021-03-31 06:00 | NUR ---
ALL DUE MEDICATIONS WERE NOT ADMINISTERED DUE TO PEG TUBE WAS OUT OF THE STOMACH.
[2021-03-31] MEDS: LEVOTHYROXINE 0.1 MG TAB GT SCH (06:30)
[2021-03-31] MEDS: LANSOPRAZOLE 30 MG CAPDR GT SCH (06:30)
--- NOTE | 2021-03-31 07:30 | NUR ---
RECEIVED BEDSIDE REPORT FROM CONSUMER EDUCATION SPECIALIST NURSE FOR CONTINUITY OF CARE. PT IS APHASIC, NONVERBAL. CONTRACTED BILATERAL UPPER AND LOWER EXTREMITIES. ON TELE MONITOR. G TUBE WAS PULLED OUT ON CONSUMER EDUCATION SPECIALIST. SKIN IS WARM, DRY, AND INTACT. IV IS IN THE RIGHT HAND 20 GAUGE TKO. NO PAIN NOTED. PLAN OF CARE DISCUSSED. PT IS STABLE AT THIS TIME.
--- NOTE | 2021-03-31 07:51 | NUR ---
RECEIVED MESSAGE FROM DR. WONG TO PLACE ORDER FOR GI CONSULT. DOCTOR AWARE OF G TUBE BEING PULLED OUT ON TRANSPORTATION MAINTENANCE SUPERVISOR. CONSULT PLACED FOR DR. MENDEZ. DR. MENDEZ WAS NOTIFIED VIA MESSAGE.
--- NOTE | 2021-03-31 07:58 | NUR ---
TEXTED BRETT NUÑEZ, RE: PEG TUBE DISPLACEMENT, NEW ORDER WAS GIVEN TO GET GI CONSULT. ENDORSED TO THE INCOMING RN. ALL REPORTS WERE GIVEN, TRANSFER OF CARE WERE ENDORSED.
[2021-03-31 08:00] VITALS: BP 152/63
[2021-03-31] MEDS: TOPIRAMATE 100 MG TAB GT SCH ×2 (09:00→21:43)
[2021-03-31] MEDS: ASCORBIC ACID 500 MG/5 ML ORASYR GT SCH (09:00)
[2021-03-31] MEDS: OLANZapine 5 MG TAB GT SCH (09:00)
[2021-03-31] MEDS: VITAMIN D 400 IU TAB GT SCH (09:00)
[2021-03-31] MEDS: LORazepam 0.5 MG TAB GT SCH (09:00)
[2021-03-31] MEDS: FLUoxetine 10 MG CAP GT SCH (09:00)
[2021-03-31] MEDS: MAGNESIUM HYDROXIDE 2400 MG/30 ML UDC GT SCH (09:00)
[2021-03-31] MEDS: FOLIC ACID 1 MG TAB GT SCH (09:00)
[2021-03-31] MEDS: FERROUS SULFATE 300 MG/5 ML UDC GT SCH (09:00)
[2021-03-31] MEDS: METOCLOPRAMIDE 10 MG/10 ML SYRP UDC GT SCH ×3 (09:00→17:34)
[2021-03-31] MEDS: DOCUSATE 100 MG/10 ML UDC GT SCH (09:00)
[2021-03-31] MEDS: ARIPiprazole 10 MG TAB GT SCH (09:00)
[2021-03-31] MEDS: LEVOFLOXACIN 500 MG/D5W PREMIX 100 ML IV SCH (09:04)
--- NOTE | 2021-03-31 09:05 | NUR ---
RECEIVED VERBAL CONSENT FROM PT TO GIVE NIKKI, SON, INFORMATION OVER THE PHONE. SPOKE TO SON OVER THE PHONE AND UPDATED HIM ON THE CONDITION OF THE PT. SON WAS VERY AGGRESSIVE AND AGITATED. ALL QUESTIONS ANSWERED.
--- NOTE | 2021-03-31 09:10 | NUR ---
G TUBE MEDICATIONS WERE NOT GIVEN ORDERED BECAUSE THE G TUBE WAS PULLED OUT ON REGISTRY NP.
--- NOTE | 2021-03-31 10:00 | NUR ---
BED BATH WAS GIVEN BY BENCH MACHINE OPERATOR. NEW DIAPER IS IN PLACE. PT TOLERATED THIS WELL. IV IS IN PLACE AND INTACT, FLUSHING WELL. FLACC 0. BREATHING IS UNLABORED ON RA. CONTRACTED BILAT UPPER/LOWER EXTREMITIES. PILLOWS USED TO OFFSET PRESSURE ON BACK. PT IS STABLE.
[2021-03-31] MEDS: VANCOMYCIN 1,000 MG in DEXTROSE 5% 250 ML IV SCH (10:40)
[2021-03-31 12:00] VITALS: BP 115/47
--- NOTE | 2021-03-31 12:00 | NUR ---
PT IS LAYING IN SEMI FOWLERS POSITION. NO RESPIRATORY DISTRESS NOTED ON RA. IV IS IN INTACT. DRESSING OVER G TUBE OPENING WHERE G TUBE WAS PULLED OUT IS DRY AND INTACT. DIAPER IS DRY. PT IS STABLE AT THIS TIME.
[2021-03-31] MEDS: DEXT 5% / NACL 0.45% 1,000 ML IV SCH ×2 (12:18→21:30)
--- NOTE | 2021-03-31 13:01 | NUR ---
REGLAN WAS NOT GIVEN ORDERED BECAUSE G TUBE IS NO LONGER IN PLACE.
--- NOTE | 2021-03-31 14:21 | NUR ---
DR. MENDEZ WAS NOTIFIED AGAIN ABOUT THE NEW CONSULT FOR THIS PATIENT DUE TO DISLODGED G TUBE. DR. MENDEZ AT BEDSIDE WITH OR NURSE. G TUBE WAS PLACED AT BEDSIDE. PT TOLERATED PROCEDURE WELL. KUB ABD XRAY WAS ORDERED AND PENDING.
--- NOTE | 2021-03-31 14:55 | NUR ---
XRAY TECHS AT BEDSIDE TO TAKE IMAGES OF ABDOMEN FOR G TUBE PLACEMENT.
[2021-03-31 16:00] VITALS: BP 138/56
--- NOTE | 2021-03-31 17:08 | NUR ---
MESSAGED DR. WONG AND INFORMED HIM THAT THE G TUBE WAS REPLACED AT BEDSIDE. REPORTING FINDINGS OF XRAY ABDOMEN AND HE STATED TO RESTART THE FEEDING. WILL START FEEDING SHORTLY.
--- NOTE | 2021-03-31 18:00 | NUR ---
G TUBE FEEDING RESTARTED AT 30 ML/HR. WILL GRADUALLY INCREASE PT IS TOLERATING FEEDING. G TUBE RESIDUAL WAS LESS THAN 5 ML. FLACC 0. BREATHING IS UNLABORED ON RA. PT IS STABLE.
--- NOTE | 2021-03-31 19:21 | NUR ---
ENDORSED PT TO STITCHER FEEDER NURSE FOR CONTINUITY OF CARE. PT IS STABLE. G TUBE IN PLACE WITH ABDOMINAL BINDER OVER G TUBE. FEEDING IS RUNNING ORDERED. PLAN OF CARE DISCUSSED.
--- NOTE | 2021-03-31 19:43 | NUR ---
PT WAS SEEN AND ASSESSED. PT ON ROOM AIR. SPO2 92%. PT IS IN NO RESPIRATORY DISTRESS AT THIS TIME. WILL CONTINUE TO MONITOR PT.
[2021-03-31 20:00] VITALS: BP 116/61
--- NOTE | 2021-03-31 20:00 | NUR ---
PATIENT WAS RECEIVED AWAKE BUT NON VERBAL SAT ABOVE 90%, NO GRIMACING
--- NOTE | 2021-03-31 21:00 | NUR ---
ALL DUE MEDS WERE GIVEN, TOLERATED WELL
--- NOTE | 2021-03-31 23:00 | NUR ---
PATIENT WAS CALMLY ASLEEP
[2021-04-01] VITALS: BP 91/64
[2021-04-01] MEDS: DEXT 5% / NACL 0.45% 1,000 ML IV SCH ×2 (01:00→16:52)
[2021-04-01 04:00] VITALS: BP 101/78
--- NOTE | 2021-04-01 06:00 | NUR ---
patient had another diarrhea changed and cleansed.
[2021-04-01 06:51] LABS: ANION GAP 10.4 (8-16); CARBON DIOXIDE 26.1 mmol/L (21-32); CREATININE 0.9 mg/dL (0.6-1.3); POTASSIUM 3.5 mmol/L (3.5-5.1)
[2021-04-01 06:56] LABS: BASOPHILS % (AUTO) 0.1 % (0.0-2.0); EOSINOPHILS # (AUTO) 0.6 K/uL (0-0.4); EOSINOPHILS % (AUTO) 7.3 % (0.0-4.0); HEMATOCRIT 30.2 % (36-52); HEMOGLOBIN 10.2 g/dL (12.0-18.0); LYMPHOCYTES # (AUTO) 1.1 K/uL (2.0-11.5); LYMPHOCYTES % (AUTO) 12.6 % (20.5-51.1); MEAN CORPUSCULAR HEMOGLOBIN 34 pg (27-31); MEAN CORPUSCULAR HGB CONC 34 g/dL (33-37); MEAN CORPUSCULAR VOLUME 100.4 fL (80-94); MONOCYTES % (AUTO) 12.5 % (1.7-9.3); NEUTROPHILS # (AUTO) 5.6 K/uL (1.8-7.7); NEUTROPHILS % (AUTO) 67.5 % (42.2-75.2); PLATELET COUNT (AUTO) 207 K/uL (140-450); RED BLOOD CELL COUNT(AUTO) 3.01 MIL/uL (4.20-6.10); RED CELL DISTRIBUTION WIDTH 14.8 % (11.6-13.7); WHITE BLOOD COUNT (AUTO) 8.4 K/uL (4.8-10.8)
[2021-04-01] MEDS: LANSOPRAZOLE 30 MG CAPDR GT SCH (07:12)
[2021-04-01] MEDS: LEVOTHYROXINE 0.1 MG TAB GT SCH (07:13)
--- NOTE | 2021-04-01 07:14 | NUR ---
reports were given, transfer of care endorsed.
--- NOTE | 2021-04-01 07:20 | NUR ---
RECEIVED BEDSIDE REPORT FROM MEDICAL LABORATORY ASSISTANT NURSE FOR CONTINUITY OF CARE. PT IS APHASIC, NONVERBAL. CONTRACTED EXTREMITIES BILATERALLY UPPER AND LOWER. G TUBE IS IN PLACE INFUSING FEEDING ORDERED. PT IS INCONTINENT OF BOWEL AND BLADDER WITH DRY DIAPER IN PLACE. SKIN IS WARM, DRY, AND INTACT. IV IS IN THE RIGHT HAND 20 GAUGE RUNNING FLUIDS ORDERED. PT IS STABLE. PLAN OF CARE DISCUSSED.
[2021-04-01 08:00] VITALS: BP 118/43
[2021-04-01] MEDS: LEVOFLOXACIN 500 MG/D5W PREMIX 100 ML IV SCH (08:50)
[2021-04-01] MEDS: METOCLOPRAMIDE 10 MG/10 ML SYRP UDC GT SCH ×3 (08:50→16:26)
[2021-04-01] MEDS: FOLIC ACID 1 MG TAB GT SCH (08:51)
[2021-04-01] MEDS: ARIPiprazole 10 MG TAB GT SCH (08:51)
[2021-04-01] MEDS: FLUoxetine 10 MG CAP GT SCH (08:51)
[2021-04-01] MEDS: TOPIRAMATE 100 MG TAB GT SCH ×2 (08:51→20:57)
[2021-04-01] MEDS: VITAMIN D 400 IU TAB GT SCH (08:51)
[2021-04-01] MEDS: FERROUS SULFATE 300 MG/5 ML UDC GT SCH (08:52)
[2021-04-01] MEDS: LORazepam 0.5 MG TAB GT SCH (08:52)
[2021-04-01] MEDS: DOCUSATE 100 MG/10 ML UDC GT SCH (08:52)
[2021-04-01] MEDS: OLANZapine 5 MG TAB GT SCH (08:52)
[2021-04-01] MEDS: ASCORBIC ACID 500 MG/5 ML ORASYR GT SCH (08:53)
[2021-04-01] MEDS: MAGNESIUM HYDROXIDE 2400 MG/30 ML UDC GT SCH (08:53)
[2021-04-01] MEDS ORDERED: LEVO-315 GT (09:19)
--- NOTE | 2021-04-01 09:30 | NUR ---
PT WAS CHANGED AND REPOSITIONED. PT VOIDED IN DIAPER. NO BM PRESENT. BREATHING IS UNLABORED ON RA. PT IS MAKING NOISES WITH MOUTH, INCOMPREHENSIBLE SPEECH. G TUBE FEEDING IS INFUSING ORDERED. G TUBE IS IN PLACE WITH ABDOMINAL BINDER ON TOP ABDOMEN. G TUBE RESIDUAL IS LESS THAN 5 ML. PT TOLERATED FEEDING WELL. WILL CONTINUE TO MONITOR. PT IS STABLE.
--- NOTE | 2021-04-01 09:38 | NUR ---
RECEIVED CRITICAL VALUE FROM GERA TURNER - BERNICE RODARTE ABOUT IT .
--- NOTE | 2021-04-01 09:56 | NUR ---
SPOKE TO DR. WONG ON THE PHONE ABOUT VANCO TROUGH AT 30.8 AND HE STATED THAT HE WILL NOT RENEW THIS MEDICATION FOR DISCHARGE.
[2021-04-01] MEDS: ALBUTEROL 0.083% 2.5 MG/3 ML NEBU INH PRN (10:20)
--- NOTE | 2021-04-01 11:30 | NUR ---
PT WAS GIVEN BED BATH BY RN AND RAIL CAR REPAIRER. PT TOLERATED MOVEMENT FAIRLY. CONTRACTED UPPER AND LOWER EXTREMITIES BILATERALLY. NO RESPIRATORY DISTRESS NOTED ON RA. IV FLUIDS ARE INFUSING ORDERED. G TUBE FEEDING IS INFUSING ORDERED.
--- NOTE | 2021-04-01 11:48 | NUR ---
CALLED DR. WONG TO INFORM HIM OF THE CRITICAL LAB. INFORMED HIM THAT THE THE BLOOD CULTURE CAME BACK GRAM POSITIVE RODS, NOT COCCI PREVIOUSLY REPORTED. DR. WONG ASKED TO HOLD THE DISCHARGE. INFORMED PAT, ROOFER HELPER VINYL COATING, AND SHE STATED SHE WILL INFORM THE FACILITY WHERE THE PATIENT WAS GOING TO BE TRANSFERRED. ALSO INFORMED HIM THAT THE PATIENT HAS A RASH ON HIS UPPER AND LOWER EXTREMITIES. HE ORDERED BENADRYL 25 MG G TUBE Q 6 HR PRN.
[2021-04-01 12:00] VITALS: BP 102/46
[2021-04-01] MEDS: diphenhydrAMINE 12.5 MG/5 ML UDC GT PRN (13:08)
--- NOTE | 2021-04-01 13:09 | NUR ---
PT WAS GIVEN BENADRYL FOR RASH ON UPPER AND LOWER EXTREMITIES. WILL CONTINUE TO MONITOR PT.
--- NOTE | 2021-04-01 14:19 | NUR ---
G TUBE FEEDING WAS CHANGED AND NEW TUBING WAS PLACED. G TUBE RESIDUAL IS LESS THAN 5 ML. BREATHING IS UNLABORED ON RA. FLACC 0. PT IS STABLE.
[2021-04-01 16:00] VITALS: BP 118/43
--- NOTE | 2021-04-01 16:30 | NUR ---
PT IS STABLE. NO DISTRESS NOTED. ON RA WITH BREATHING UNLABORED. G TUBE FEEDING IS INFUSING. IV IS INTACT. WILL MONITOR.
--- NOTE | 2021-04-01 19:05 | NUR ---
ENDORSED PT TO SNOW REMOVAL/PLOWING NURSE FOR CONTINUITY OF CARE. PT IS STABLE AT THIS TIME. PLAN OF CARE DISCUSSED.
[2021-04-01 20:00] VITALS: BP 157/62
--- NOTE | 2021-04-01 20:00 | NUR ---
RECEIVED BEDSIDE REPORT REGARDING THE PATIENT FROM DAY RN FOR CONTINUITY OF CARE. PATIENT ASLEEP AND AROUSABLE. NOT IN ANY DISTRESS. IVF AND G TUBE FEEDING INFUSING ORDERED. VSS, AFEBRILE. PATIENT ONLY SATING 92% TO 93% ON RA. WILL MONITOR PATIENT SATURATION AND WILL GET AN ORDER TO PLACE O2 IF NEEDED. SR ON TELE MONITOR, HR- 78. FALL PRECAUTION AND ISOLATION PRECAUTION IMPLEMENTED. CALL LIGHT WITHIN REACH. WILL CONTINUE POC AND MONITORING.
--- NOTE | 2021-04-01 22:00 | NUR ---
DUE MEDS GIVEN ORDERED. PATIENT TOLERATED IT WELL. NO ADVERSE DRUG REACTION NOTED. WILL CONTINUE OBSERVATION.
[2021-04-02] VITALS: BP 114/56
--- NOTE | 2021-04-02 | NUR ---
VSS, AFEBRILE, SATING 90% ON RA. PLACED THE PT ON 2L/NC. SR ON TELE MONITOR, HR-86. NOT IN ANY DISTRESS. WILL CONTINUE TO MONITOR THE PT.
[2021-04-02] MEDS: DEXT 5% / NACL 0.45% 1,000 ML IV SCH ×3 (01:47→12:49)
[2021-04-02 04:00] VITALS: BP 118/58
[2021-04-02] MEDS: LANSOPRAZOLE 30 MG CAPDR GT SCH (05:39)
[2021-04-02] MEDS: LEVOTHYROXINE 0.1 MG TAB GT SCH (05:39)
--- NOTE | 2021-04-02 05:45 | NUR ---
CHECKED THE PATIENT BLOOD SUGAR, 106. NO COVERAGE NEEDED OR GIVEN. NOTED PT IV INFILTRATED ON THE RT HAND. WILL ASKED COMPUTER CONSULTANT FAIRY TO PLACED A NEW ONE.
--- NOTE | 2021-04-02 06:00 | NUR ---
ENDORSED PT TO RN CHIDI FOR CONTINUITY OF CARE. PATIENT STABLE AND NOT IN ANY DISTRESS. SIGNING OFF.
--- NOTE | 2021-04-02 06:05 | NUR ---
ENDORSED TO MEGHANN MURILLO THAT PT IV GOT INFILTRATED AND NEEDED AN IV LINE.
[2021-04-02 06:34] LABS: HEMATOCRIT 31.7 % (36-52); HEMOGLOBIN 10.6 g/dL (12.0-18.0); MEAN CORPUSCULAR HEMOGLOBIN 34 pg (27-31); MEAN CORPUSCULAR HGB CONC 34 g/dL (33-37); MEAN CORPUSCULAR VOLUME 101.1 fL (80-94); PLATELET COUNT (AUTO) 260 K/uL (140-450); RED BLOOD CELL COUNT(AUTO) 3.14 MIL/uL (4.20-6.10); RED CELL DISTRIBUTION WIDTH 14.9 % (11.6-13.7); WHITE BLOOD COUNT (AUTO) 11.9 K/uL (4.8-10.8)
[2021-04-02 06:35] LABS: ALBUMIN 2.4 g/dL (3.4-5.0); ANION GAP 13.3 (8-16); CARBON DIOXIDE 24.7 mmol/L (21-32); CREATININE 0.8 mg/dL (0.6-1.3); TOTAL BILIRUBIN 0.2 mg/dL (0.0-1.0)
[2021-04-02 06:56] LABS: EOSINOPHILS % (MANUAL) 4 % (0-4); LYMPHOCYTES % (MANUAL) 8 % (20-46); MONOCYTES % (MANUAL) 12 % (5-12)
[2021-04-02] MEDS: ALBUTEROL 0.083% 2.5 MG/3 ML NEBU INH PRN (07:54)
[2021-04-02 08:00] VITALS: BP 157/62
--- NOTE | 2021-04-02 08:02 | NUR ---
RECEIVED REPORT FROM ADJUNCT LECTURER FOR CONTINUITY OF CARE. PATIENT IS APHASIC, CONTRACTED TO BOTH LOWER AND UPPER EXTREMITIES. WITH IV INFILTRATED AND WILL RE INSERT. WITH G-TUBE INTACT FEEDING INFUSING WELL. DROPLET ISOLATION OBSERVED. WAITING FOR PCR RESULT. CALLED LAB TO FOLLOW UP. NEEDS ATTENDED, WILL CONTINUE TO MONITOR.
[2021-04-02] MEDS: LEVOFLOXACIN 500 MG/D5W PREMIX 100 ML IV SCH (09:29)
[2021-04-02] MEDS: FLUoxetine 10 MG CAP GT SCH (09:30)
[2021-04-02] MEDS: FERROUS SULFATE 300 MG/5 ML UDC GT SCH (09:30)
[2021-04-02] MEDS: DOCUSATE 100 MG/10 ML UDC GT SCH (09:30)
[2021-04-02] MEDS: ARIPiprazole 10 MG TAB GT SCH (09:30)
[2021-04-02] MEDS: FOLIC ACID 1 MG TAB GT SCH (09:31)
[2021-04-02] MEDS: LORazepam 0.5 MG TAB GT SCH (09:31)
[2021-04-02] MEDS: VITAMIN D 400 IU TAB GT SCH (09:34)
[2021-04-02] MEDS: ASCORBIC ACID 500 MG/5 ML ORASYR GT SCH (09:34)
[2021-04-02] MEDS: OLANZapine 5 MG TAB GT SCH (09:38)
[2021-04-02] MEDS: TOPIRAMATE 100 MG TAB GT SCH ×2 (09:38→21:58)
[2021-04-02] MEDS: MAGNESIUM HYDROXIDE 2400 MG/30 ML UDC GT SCH (09:38)
[2021-04-02] MEDS: METOCLOPRAMIDE 10 MG/10 ML SYRP UDC GT SCH ×3 (09:40→16:31)
--- NOTE | 2021-04-02 10:00 | NUR ---
ALL DUE MEDICATIONS GIVEN VIA G-TUBE AND TOLERATED WELL. PATIENT DOWNGRADE TO MED SURG, REMOVED TELE BOX.
--- NOTE | 2021-04-02 13:07 | NUR ---
PATIENT ASLEEP, NOT IN ANY DISTRESS NOTED. WILL CONTINUE TO MONITOR.
--- NOTE | 2021-04-02 13:40 | NUR ---
REPORT GIVEN TO MEGHANN POOL FOR CONTINUITY OF CARE. PATIENT IN STABLE CONDITION.
--- NOTE | 2021-04-02 13:47 | NUR ---
RECEIVED REPORT FROM AUGUSTA ZAVALETA FOR CONTINUITY OF CARE. PATIENT ASLEEP AND AROUSABLE. NOT IN ANY DISTRESS. IVF AND G TUBE FEEDING INFUSING ORDERED. . PATIENT ON ROOM AIR ST 93% . ALL SAFETY MEASURES ON PLACE CALLS LIGHT WITHIN REACH CALL LIGHT WITHIN REACH. WILL CONTINUE POC AND MONITORING.
--- NOTE | 2021-04-02 14:47 | NUR ---
04/02/21 RD FOLLOW UP COMPLETED PLEASE REFER TO NUTRITION ASSESSMENT UNDER CARE ACTIVITY FOR ESTIMATED NUTRITIONAL NEEDS. 1. CONTINUE OSMOLITE 1.5 @ 60 ML/HR - OSMOLITE 1.5 @ 60 ML/HR WITH FLUSH OF 265 Q6H WILL PROVIDE 2160 KCAL, 90 G PROTEIN AND 2160 ML WATER/DAY, MEETING ADEQUATE NUTRIENT NEEDS 2. RD TO FOLLOW-UP 2-3 DAYS, HIGH RISK WILLIAM GAN RD
[2021-04-02 16:00] VITALS: BP 118/54
[2021-04-02] MEDS: IBUPROFEN 600 MG TAB GT PRN (16:34)
--- NOTE | 2021-04-02 16:37 | NUR ---
PATIENT IN BED GOT CLEANED AND CHANGED AND REPOSITIONED, PATIENT SEEMS TO BE IN PAIN ACCORDING TO FLACC, PAIN MEDICATION GIVEN , ALL SAFETY MEASURES ON PLACE CALLS LIGHT WITHIN REACH
--- NOTE | 2021-04-02 17:49 | NUR ---
PATIENT IN BED GOT CLEANED AND CHANGED AND REPOSITIONED, ALL SAFETY MEASURES ON PLACE CALLS LIGHT WITHIN REACH
--- NOTE | 2021-04-02 19:28 | NUR ---
FULL BEDSIDE REPORT GIVEN TO CREDIT UNION TELLER NURSE
--- NOTE | 2021-04-02 21:16 | NUR ---
NAHID THOMAS CONTACTED AND SPOKE W/ DR ROSSI INFORMED HIM PT TENDS TO DESAT WHILE SLEEPING AND APPEARS TO BE PULLING THEN GASPS AND TAKES BREATH AND SPO2 RISES >90% PER KEEP SAT > 92% W/ NOC O2 + PRN PT PLACED ON 3LNC CURRENT SPO2 97% WILL CONTINUE TO MONITOR
[2021-04-03 00:08] VITALS: BP 121/65
--- NOTE | 2021-04-03 02:14 | NUR ---
the patient was admitted for SOB, resp failure and PNEUMONIA THE PATEINT HAS LONG HX OF SEIZURES, COPD, HTN , DM , CEREBRAL PALSY AND SEVERE MENTAL RETARDATION. vital signs are stable , his O2 was going 90% . he is on NC 3L , his O2 is >96%. he is tube feeding. his breathing is even and unlabored comfort and safety measures are provided.no symptos or signs of distress.
[2021-04-03] MEDS: diphenhydrAMINE 12.5 MG/5 ML UDC GT PRN (04:58)
[2021-04-03 06:13] LABS: ANION GAP 12.5 (8-16); CARBON DIOXIDE 27.7 mmol/L (21-32); CREATININE 0.7 mg/dL (0.6-1.3); POTASSIUM 4.2 mmol/L (3.5-5.1)
[2021-04-03] MEDS: LEVOTHYROXINE 0.1 MG TAB GT SCH (06:14)
[2021-04-03] MEDS: LANSOPRAZOLE 30 MG CAPDR GT SCH (06:15)
[2021-04-03 06:23] LABS: BASOPHILS % (AUTO) 0.1 % (0.0-2.0); EOSINOPHILS # (AUTO) 0.8 K/uL (0-0.4); EOSINOPHILS % (AUTO) 7.4 % (0.0-4.0); HEMATOCRIT 30.7 % (36-52); HEMOGLOBIN 10.3 g/dL (12.0-18.0); LYMPHOCYTES # (AUTO) 1.1 K/uL (2.0-11.5); LYMPHOCYTES % (AUTO) 10.3 % (20.5-51.1); MEAN CORPUSCULAR HEMOGLOBIN 34 pg (27-31); MEAN CORPUSCULAR HGB CONC 34 g/dL (33-37); MEAN CORPUSCULAR VOLUME 101.4 fL (80-94); MONOCYTES # (AUTO) 0.9 K/uL (0.8-1.0); MONOCYTES % (AUTO) 8.5 % (1.7-9.3); NEUTROPHILS # (AUTO) 7.7 K/uL (1.8-7.7); NEUTROPHILS % (AUTO) 73.7 % (42.2-75.2); PLATELET COUNT (AUTO) 268 K/uL (140-450); RED BLOOD CELL COUNT(AUTO) 3.03 MIL/uL (4.20-6.10); RED CELL DISTRIBUTION WIDTH 14.8 % (11.6-13.7); WHITE BLOOD COUNT (AUTO) 10.4 K/uL (4.8-10.8)
[2021-04-03] MEDS: LORazepam 0.5 MG TAB GT SCH (06:24)
[2021-04-03] MEDS: ALBUTEROL 0.083% 2.5 MG/3 ML NEBU INH PRN (07:14)
--- NOTE | 2021-04-03 07:41 | NUR ---
RECEIVED REPORT FROM SEAT JOINER CHAINSTITCH RN FOR CONTINUITY OF CARE. PATIENT ASLEEP AND AROUSABLE. NOT IN ANY DISTRESS.BREATHING EVEN UNLABORED IVF AND G TUBE FEEDING INFUSING ORDERED. . PATIENT ON ROOM AIR ST 95% . ALL SAFETY MEASURES ON PLACE CALLS LIGHT WITHIN REACH CALL LIGHT WITHIN REACH. WILL CONTINUE POC AND MONITORING.
[2021-04-03 08:00] VITALS: BP 112/70
[2021-04-03] MEDS: OLANZapine 5 MG TAB GT SCH (08:24)
[2021-04-03] MEDS: ARIPiprazole 10 MG TAB GT SCH (08:24)
[2021-04-03] MEDS: FLUoxetine 10 MG CAP GT SCH (08:24)
[2021-04-03] MEDS: VITAMIN D 400 IU TAB GT SCH (08:25)
[2021-04-03] MEDS: IBUPROFEN 600 MG TAB GT PRN (08:25)
[2021-04-03] MEDS: TOPIRAMATE 100 MG TAB GT SCH (08:25)
[2021-04-03] MEDS: MAGNESIUM HYDROXIDE 2400 MG/30 ML UDC GT SCH (08:26)
[2021-04-03] MEDS: ASCORBIC ACID 500 MG/5 ML ORASYR GT SCH (08:26)
[2021-04-03] MEDS: FOLIC ACID 1 MG TAB GT SCH (08:26)
[2021-04-03] MEDS: FERROUS SULFATE 300 MG/5 ML UDC GT SCH (08:27)
[2021-04-03] MEDS: DEXT 5% / NACL 0.45% 1,000 ML IV SCH (08:27)
[2021-04-03] MEDS: DOCUSATE 100 MG/10 ML UDC GT SCH (08:27)
[2021-04-03] MEDS: METOCLOPRAMIDE 10 MG/10 ML SYRP UDC GT SCH ×3 (08:27→16:03)
[2021-04-03] MEDS: LEVOFLOXACIN 500 MG/D5W PREMIX 100 ML IV SCH (08:27)
--- NOTE | 2021-04-03 08:35 | NUR ---
PATIENT IN BED ACCORDING TO FLACC PATIENT SEEMS TO BE IN PAIN, GOT CLEANE AND CHANGED GOT MEDICATED MD ORDERGOT MORNING MEDICATION TOLERATED WELL ALL SAFETY MEASURES IN PLACE CALLS LIGHT WITHIN REACH
--- NOTE | 2021-04-03 10:35 | NUR ---
PATIENT IN BED NO COMPLAINS NO SOD NOTED, LOOKS RELAXED, GOT CLEANED AND CHANGED, WELL ALL SAFETY MEASURES IN PLACE CALLS LIGHT WITHIN REACH
--- NOTE | 2021-04-03 12:15 | NUR ---
PATIENT IN BED NO COMPLAINS NO SOD NOTED, LOOKS RELAXED, WELL ALL SAFETY MEASURES IN PLACE CALLS LIGHT WITHIN REACH
--- NOTE | 2021-04-03 14:58 | NUR ---
PATIENT IN BED NO COMPLAINS GOT GOT CLEANED AND CHANGED, , NO SOD NOTED ALL SAFETY MEASURES IN PLACE CALLS LIGHT WITHIN REACH
[2021-04-03 15:54] VITALS: BP 113/69
--- NOTE | 2021-04-03 16:44 | NUR ---
PATIENT IN BED NO COMPLAINS GOT GOT CLEANED AND CHANGED, , NO SOD NOTED PATIENT GETTING DISCHARGE, FULL REPORT GIVEN TO NURSE DAVID , GOT ALL BELONGINGS, IV REMOVED BLEEDING CONTROLLED, PATIENT LEFT
== END 2021-04-03 16:45 | disposition home or self-care (01) | DRG 871 ==
LOC: MED 17:26 → MMU 19:11 → MTU 20:04
PROVIDERS: ADMIT Preventive Medicine Preventive Medicine/Occupational Environmental Medicine; ATTEND Preventive Medicine Preventive Medicine/Occupational Environmental Medicine
PROC: 0DH68UZ Insertion of Feeding Device into Stomach, Via Natural or Artificial Opening Endoscopic (ICD-10-PCS; principal; 2021-03-31)
DX: A41.89 Other specified sepsis (principal); J18.9 Pneumonia, unspecified organism; J96.01 Acute respiratory failure with hypoxia; F72 Severe intellectual disabilities; J44.0 Chronic obstructive pulmonary disease with (acute) lower respiratory infection; K94.23 Gastrostomy malfunction; D64.9 Anemia, unspecified; E11.65 Type 2 diabetes mellitus with hyperglycemia; E78.5 Hyperlipidemia, unspecified; E88.09 Other disorders of plasma-protein metabolism, not elsewhere classified; F32.A Depression, unspecified; F41.9 Anxiety disorder, unspecified; G40.909 Epilepsy, unspecified, not intractable, without status epilepticus; G80.9 Cerebral palsy, unspecified; Z20.822 Contact with and (suspected) exposure to COVID-19; Y83.8 Other surgical procedures as the cause of abnormal reaction of the patient, or of later complication, without mention of misadventure at the time of the procedure; I10 Essential (primary) hypertension; K21.9 Gastro-esophageal reflux disease without esophagitis; K22.70 Barrett's esophagus without dysplasia; Z88.0 Allergy status to penicillin; Z88.1 Allergy status to other antibiotic agents; Z79.2 Long term (current) use of antibiotics; Z79.899 Other long term (current) drug therapy; Y92.89 Other specified places as the place of occurrence of the external cause
CPT/HCPCS: 36415; 71045; 80048; 80053; 80202; 81001; 83605; 83690; 83880; 84484; 85025; 85379; 85651; 86140; 87040; 87081; 87086; 93005; 94640; 96365; 96367; 99291; J0692; J1956; J3370; J7060; J7613; J8597; Q0163; U0003

== ENCOUNTER 2021-06-12 08:10 | Emergency (ER) | payer OTHER, MEDICAID, SELFPAY ==
[~2021-06-12] VITALS: Ht 175.3 cm; Wt 83.9 kg
[~2021-06-12 08:10] MED LIST changes: +ASCO-786 GT; +BISA-218 RC; +CARB15DR61 OT; +DEC10I IVP; +DEC4 GT; -DEXT100S62 IV; +DEXT15SY7 PO; +FAMO-92 PO; +FERR75LI22 GT; +FLEMIN RC; +IBUP-2213 GT; +LEVO0.083 PO; +LOV40I SUBQ; +MERO500V16 IV; +METO5SOL19 GT; +OLAN15TA1 GT; +OLAN15TA1 PO; +OMEP40EC23 GT; +PRON INH; +TOP100 GT; +TYLCODL PO; -Vancomycin Per Pharmacy MC
[2021-06-12 08:43] VITALS: BP 118/80
[2021-06-12] MEDS ORDERED: VANCOMYCIN 1,000 MG in DEXTROSE 5% 250 ML IV ONE (08:45)
[2021-06-12] MEDS ORDERED: MEROPENEM 1,000 MG in NACL 0.9% 100 ML IV ONE (08:45)
--- NOTE | 2021-06-12 08:45 | NUR ---
PT BIB ALS RUN FROM [facility] C/O SOB. PT IN RESPIRATORY DISTRESS ON 10L NON REBREATHER SATURATION 95%. PT TACHYPNEIC IN 30S. SKIN HOT TO TOUCH. STACH IN 140S. FULL CODE, PT COVID +. PLACED IN BED 6
--- NOTE | 2021-06-12 08:47 | NUR ---
PT PLACED IN BIPAP BY RT AT BEDSIDE
--- NOTE | 2021-06-12 08:50 | NUR ---
FIO2 100%, RATE 15, 04/28
--- NOTE | 2021-06-12 08:50 | NUR ---
BLOOD SAMPLE/CULTURES COLLECTED, WALKED TO LAB
--- NOTE | 2021-06-12 08:52 | NUR ---
# 16 FR Addison catheter with 10 ml utilizing sterile technique. Immediate return of 100 ml clear/yellow urine noted. Bedside drainage bag placed below level of bladder. Urine sample collected and sent to lab. Pt tolerated procedure well
--- NOTE | 2021-06-12 08:55 | NUR ---
UA COLLECTED HANDED TO CPT AT ER BEDSIDE
[2021-06-12] MEDS ORDERED: ASPIRIN 81 MG TAB.CHEW PO ONE (09:00)
[2021-06-12] MEDS ORDERED: CRUSHER, PILL MC ONE (09:02)
[2021-06-12] MEDS ORDERED: MEROPENEM 1,000 MG VIAL IV ONE (09:12)
[2021-06-12 09:28] VITALS: BP 115/93
--- NOTE | 2021-06-12 09:38 | NUR ---
Patient to be transferred to [facility]. Is being transferred due to HIGHER LEVEL OF CARE. Receiving facility has accepting physician and available space. ER physician has signed transfer form. Patient or responsible libertarian has agreed to transfer and signed form. Patient belongings inventoried and will be sent with patient. Copy of nursing notes, lab reports, EKG, Physicians Orders and X-rays to be sent with patient. Report called to MEGHANN STILES at receiving facility. [facility] ambulance service has been called for transfer. ETA is 10 MIN.
--- NOTE | 2021-06-12 09:42 | NUR ---
[facility] at bedside
[2021-06-12 09:53] LABS: BASOPHILS % (AUTO) 0.1 % (0.0-2.0); EOSINOPHILS % (AUTO) 0.1 % (0.0-4.0); HEMATOCRIT 41.7 % (36-52); HEMOGLOBIN 13.6 g/dL (12.0-18.0); LYMPHOCYTES % (AUTO) 3.8 % (20.5-51.1); MEAN CORPUSCULAR HEMOGLOBIN 33 pg (27-31); MEAN CORPUSCULAR HGB CONC 33 g/dL (33-37); MEAN CORPUSCULAR VOLUME 101.7 fL (80-94); MONOCYTES # (AUTO) 2.2 K/uL (0.8-1.0); MONOCYTES % (AUTO) 8.5 % (1.7-9.3); NEUTROPHILS # (AUTO) 22.4 K/uL (1.8-7.7); NEUTROPHILS % (AUTO) 87.5 % (42.2-75.2); PLATELET COUNT (AUTO) 234 K/uL (140-450); RED CELL DISTRIBUTION WIDTH 15.5 % (11.6-13.7)
[2021-06-12 10:05] LABS: WHITE BLOOD COUNT (AUTO) 25.6 K/uL (4.8-10.8)
[2021-06-12 10:20] LABS: ALBUMIN 3.3 g/dL (3.4-5.0); ANION GAP 19.5 (8-16); CREATINE KINASE MB 1.3 ng/mL (0-3.6); CREATININE 1.4 mg/dL (0.6-1.3); FREE T4 (FREE THYROXINE) 1.29 ng/dL (0.76-1.46); POTASSIUM 4.5 mmol/L (3.5-5.1); THYROID STIMULATING HORMONE 0.5 uIU/mL (0.34-3.74); TOTAL BILIRUBIN 0.9 mg/dL (0.0-1.0)
[2021-06-12 14:03] LABS: APPEARANCE,URINE CLEAR (CLEAR); BILIRUBIN,URINE NEGATIVE (NEGATIVE); BLOOD, URINE NEGATIVE (NEGATIVE); COLOR,URINE YELLOW (YELLOW); LEUKOCYTE ESTERASE ,URINE NEGATIVE (NEGATIVE); NITRITE, URINE NEGATIVE (NEGATIVE); UGLUCOSE NEGATIVE (NEGATIVE)
--- NOTE | 2021-06-14 11:39 | NUR ---
LATE ENTRY- [facility] DISCONTINUED AT 0938.
== END 2021-06-12 09:45 | disposition short-term general hospital (02) ==
LOC: MED 08:10
DX: U07.1 COVID-19 (principal); J12.82 Pneumonia due to coronavirus disease 2019; I21.3 ST elevation (STEMI) myocardial infarction of unspecified site; J96.00 Acute respiratory failure, unspecified whether with hypoxia or hypercapnia; J44.9 Chronic obstructive pulmonary disease, unspecified; K21.9 Gastro-esophageal reflux disease without esophagitis; Z88.0 Allergy status to penicillin; Z88.1 Allergy status to other antibiotic agents; Z88.8 Allergy status to other drugs, medicaments and biological substances; Z79.899 Other long term (current) drug therapy
CPT/HCPCS: 36415; 71045; 80053; 81002; 82550; 82553; 83690; 83880; 84439; 84443; 84484; 85025; 87426; 94660; 94760; 96374; 99291; J2185; Q0092